=== PATIENT | female | born 1980 | race Caucasian/White ===

== ENCOUNTER 2016-05-13 23:10 | Emergency (ER) | payer OTHER ==
[2016-05-13 23:19] VITALS: BMI 37.8
--- NOTE | 2016-05-14 00:43 | ED PDOC ---
Arrival/HPI - General Historian: Patient - History of Present Illness Time/Duration: Other (3-4 hours) Symptom Course: Improving Severity Level: Mild Activities at Onset: Rest, Light Context: Home - General Chief Complaint: Allergic Reaction Time Seen by Provider: 05/14/16 00:16 - History of Present Illness Narrative History of Present Illness (Text): 05/14/16 00:35 36 year old female who presents to the Emergency department complaining of 3-4 hour durations of lower lip swelling. Patient also with intermittent throat itchiness and nasal congestion. Patient is unsure what triggered the reaction and notes she cooked herself. Patient states she only added hot sauce and adobo seasoning, which she has eating before without any adverse reactions. Patient denies any new medications, shortness of breath, throat swelling, rash, fever, chills, abdominal vomiting, diarrhea, or any other complaints. Patient states she took Loratidine 2 hours prior to arrival and notes swelling is improving. (Alexsander VELOZ,Ashley Varela) Past Medical History - Provider Review Nursing Documentation Reviewed: Yes - Past History Past History: Non-Contributing - Infectious Disease Hx of Infectious Diseases: None - Tetanus Immunization Tetanus Immunization: Unknown - Cardiac Hx Cardiac Disorders: No Hx Hypertension: No - Pulmonary Hx Respiratory Disorders: No Hx Tuberculosis: No - Neurological Hx Neurological Disorder: No HX Cerebrovascular Accident: No Hx Seizures: No - HEENT Hx HEENT Disorder: No - Renal Hx Renal Disorder: No - Endocrine/Metabolic Hx Endocrine Disorders: No - Hematological/Oncological Hx Blood Disorders: No Hx Cancer: No - Integumentary Hx Dermatological Disorder: No - Musculoskeletal/Rheumatological Hx Musculoskeletal Disorders: Yes Hx Herniated Disk: Yes (c5-6) - Gastrointestinal Hx Gastrointestinal Disorders: No - Genitourinary/Gynecological Hx Genitourinary Disorders: No Hx Sexually Transmitted Diseases: No - Psychiatric Hx Psychophysiologic Disorder: Yes Hx Anxiety: Yes Hx Bipolar Disorder: Yes Hx Depression: Yes Hx Schizophrenia: Yes Hx Substance Use: No Other/Comment: SCHIZO AFFECTIVE DISORDER - Surgical History Hx Eye Surgery: Yes Hx Orthopedic Surgery: Yes (back/herniated disc c5-6) - Anesthesia Hx Anesthesia: Yes - Suicidal Assessment Feels Threatened In Home Enviroment: No Family/Social History - Physician Review Nursing Documentation Reviewed: Yes Family/Social History: No Known Family HX Smoking Status: Never Smoked Hx Alcohol Use: No Hx Substance Use: No Hx Substance Use Treatment: No Allergies/Home Meds Allergies/Adverse Reactions: Allergies No Known Allergies Allergy (Verified 05/13/16 23:25) Review of Systems - Physician Review All systems were reviewed & negative as marked: Yes - Review of Systems Constitutional: Normal. absent: Fevers Eyes: Normal ENT: Other ( +throat itchiness, +nasal congestion) Respiratory: Normal. absent: SOB, Cough Cardiovascular: Normal. absent: Chest Pain Gastrointestinal: Normal. absent: Abdominal Pain, Diarrhea, Nausea, Vomiting Genitourinary Female: Normal. absent: Dysuria, Frequency, Hematuria, Urine Output Changes Musculoskeletal: Normal. absent: Back Pain, Neck Pain Skin: Other (+swelling to lower lip). absent: Rash Neurological: Normal. absent: Headache, Dizziness Endocrine: Normal Hemo/Lymphatic: Normal Psychiatric: Normal Physical Exam Vital Signs Reviewed: Yes Temperature: Afebrile Blood Pressure: Normal Pulse: Regular Respiratory Rate: Normal Appearance: Positive for: Well-Appearing, Non-Toxic, Comfortable Pain Distress: None Mental Status: Positive for: Alert and Oriented X 3 - Systems Exam Head: Present: Atraumatic, Normocephalic Pupils: Present: PERRL Extroacular Muscles: Present: EOMI Conjunctiva: Present: Normal Ears: Present: Normal, NORMAL TM, Normal Canal. No: Erythema, TM Bulging, Fluid Mouth: Present: Moist Mucous Membranes, Normal Tounge, Normal Teeth. No: Normal Lips (Mild swelling to lower lip) Pharnyx: Present: Normal. No: ERYTHEMA, EXUDATE, TONSILS ENLARGED, Peritonsilar Swelling, Uvular Deviation, Muffled/Hoarse Voice, Strider, Soft Palate/Uvular Edema Neck: Present: Normal Range of Motion Respiratory/Chest: Present: Clear to Auscultation, Good Air Exchange. No: Respiratory Distress, Accessory Muscle Use Cardiovascular: Present: Regular Rate and Rhythm, Normal S1, S2. No: Murmurs Neurological: Present: GCS=15, CN II-XII Intact, Speech Normal Skin: Present: Warm, Dry, Normal Color. No: Rashes Psychiatric: Present: Alert, Oriented x 3, Normal Insight, Normal Concentration Vital Signs Temp Pulse Resp BP Pulse Ox 05/14/16 01:39 98.8 F 88 16 142/84 98 05/13/16 23:26 99.6 F 99 H 17 174/70 H 95 Medical Decision Making ED Course and Treatment: 05/14/16 00:35 Impression: 36 year old female complaining of lower lip swelling with intermittent throat itchiness and nasal congestion. Plan: -- Solu-medrol -- Reassess and disposition 05/14/16 01:03 On reevaluation, patient appears well, she is in no respiratory distress, speaking in full sentences, no drooling. Exam is unchanged. VS: P 88 BP 142/84 98%RA T98 Based on history and exam, plan will be for outpatient follow-up. Rx provided. Patient states she fully agrees with and understands discharge instructions. States that she agrees with the plan and disposition. Verbalized and repeated discharge instructions and plan. I have given the patient opportunity to ask any additional questions. Follow up with primary care physician in 1-2 days without fail. Advised to take medication as prescribed and to continue loratidine. Return to the emergency room at any time for any new or worsening symptoms. (Alexsander VELOZ,Ashley Varela) - Medication Orders Current Medication Orders: Discontinued Medications Methylprednisolone (Solu-Medrol) 125 mg IM STAT STA Stop: 05/14/16 00:37 Last Admin: 05/14/16 01:19 Dose: 125 MG IM Administration Charges Document 05/14/16 01:19 FJA (Rec: 05/14/16 01:19 FJA [id number]) Injection Site MAR Injection Site Right Deltoid Charges for Administration # of IM Administrations 1 - PA / STAFFING BRANCH MANAGER / Resident Statement MD/DO has reviewed & agrees with the documentation as recorded. - Scribe Statement The provider has reviewed the documentation as recorded by the Scribe - Scribe Statement Paty Slater All medical record entries made by the Scribe were at my direction and personally dictated by me. I have reviewed the chart and agree that the record accurately reflects my personal performance of the history, physical exam, medical decision making, and the department course for this patient. I have also personally directed, reviewed, and agree with the discharge instructions and disposition. (Alexsander VELOZ,Ashley Varela) Disposition/Present on Arrival - Present on Arrival Any Indicators Present on Arrival: No History of DVT/PE: No History of Uncontrolled Diabetes: No Urinary Catheter: No History of Decub. Ulcer: No History Surgical Site Infection Following: None - Disposition Have Diagnosis and Disposition been Completed?: Yes Disposition Time: 01:05 Patient Plan: Discharge - Disposition Diagnosis: Lip swelling, Allergic reaction Disposition: HOME/ ROUTINE Condition: GOOD Discharge Instructions (ExitCare): General Allergic Reaction (ED) Print Language: GIBR[place] Additional Instructions: Thank you for letting us take care of you today. You were treated for lip swelling, allergic reaction. The emergency medical care you received today was directed at your acute symptoms. If you were prescribed any medication, please fill it and take as directed, continue taking loratidine. It may take several days for your symptoms to resolve. Return to the Emergency Department if your symptoms worsen, do not improve, or if you have any other problems. Please contact your doctor in 2 days for re-evaluation and follow up. Bring any paperwork you were given at discharge with you along with any medications you are taking to your follow up visit. Our treatment cannot replace ongoing medical care by a primary care provider (PCP) outside of the emergency department. Thank you for allowing the [facility] team to be part of your care today. Prescriptions: predniSONE [predniSONE Tab] 40 mg PO DAILY #8 tab
[2016-05-14 01:42] VITALS: BP 142/84; PULSE 88; RESP 16; TEMP 98.8; O2SAT 98
== END 2016-05-14 01:42 | disposition home or self-care (01) ==
LOC: ED 23:10
DX: T78.40XA Allergy, unspecified, initial encounter (principal); X58.XXXA Exposure to other specified factors, initial encounter; K13.0 Diseases of lips
CPT/HCPCS: 96372; 99282; J2930

== ENCOUNTER 2016-07-31 01:50 | Emergency (ER) | payer MEDICAID, OTHER ==
[2016-07-31 01:52] VITALS: BMI 37.8
== END 2016-07-31 02:36 | disposition left against medical advice (07) ==
LOC: ED 01:50
DX: Z02.89 Encounter for other administrative examinations (principal); R25.2 Cramp and spasm

== ENCOUNTER 2016-08-02 12:46 | Emergency (ER) | payer MEDICAID ==
[2016-08-02 12:46] VITALS: BMI 37.8
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
[2016-08-02 13:25] LABS: ADD MANUAL DIFF? NO
[2016-08-02 13:37] LABS: ALB/GLOB RATIO 1.2 (1.1-1.8); ALKALINE PHOSPHATASE 75 U/L (38-133); ALT/SGPT 36 U/L (7-56); AST/SGOT 29 U/L (15-39); BILIRUBIN,TOTAL 0.4 mg/dL (0.2-1.3); BLOOD UREA NITROGEN 9 mg/dL (7-21); CALCIUM 9.2 mg/dL (8.4-10.5); CARBON DIOXIDE 24 mmol/L (21-33); CHLORIDE 105 mmol/L (95-110); GFR AFRICAN-AMERICAN > 60; GLUCOSE,RANDOM 131 mg/dL (70-110); POTASSIUM 3.6 mmol/L (3.6-5.0); SODIUM 141 mmol/L (132-148); TOTAL PROTEIN 7.6 g/dL (5.8-8.3)
[2016-08-02 13:51] LABS: BASO # 0.03 K/mm3 (0.0-2.0); BASO % 0.3 % (0.0-3.0); EOS # 0.1 (0.0-0.7); EOS % 0.9 % (1.5-5.0); GRAN # 5.86 (1.4-6.5); GRAN % 64.3 % (50.0-68.0); LYMPH # 2.6 (1.2-3.4); LYMPH % 28.2 % (22.0-35.0); MEAN CELL VOLUME 84.9 fL (80.0-105.0); MEAN CORPUSCULAR HEMOGLOBIN 28.4 pg (25.0-35.0); MEAN CORPUSCULAR HGB CONC 33.4 g/dl (31.0-37.0); MEAN PLATELET VOLUME 9.2 fl (7.0-11.0); MONO # 0.6 (0.1-0.6); MONO % 6.3 % (1.0-6.0); PLATELET COUNT 374 10^3/uL (120.0-450.0); WHITE BLOOD COUNT 9.1 10^3/ul (4.5-11.0)
[2016-08-02 15:08] VITALS: BP 132/90; PULSE 97; RESP 22; TEMP 98.2; O2SAT 96
--- NOTE | 2016-08-03 09:56 | CARD ---
APPROVED REPORT EKG Measurement Heart [id number] <Conclusion> Sinus tachycardia Low voltage QRS PRWP NSSTW change No change
== END 2016-08-02 15:21 | disposition home or self-care (01) ==
LOC: ED 12:46
DX: F25.9 Schizoaffective disorder, unspecified (principal)

== ENCOUNTER 2016-09-09 13:04 | Emergency (ER) | payer MEDICAID ==
[2016-09-09 13:45] VITALS: BMI 38.4
[2016-09-09 13:47] VITALS: RESP 18; TEMP 98.7; O2SAT 100
[2016-09-09 14:06] LABS: URINE BILIRUBIN NEGATIVE (NEGATIVE); URINE BLOOD NEGATIVE (NEGATIVE); URINE GLUCOSE (UA) NEGATIVE (NEGATIVE); URINE LEUKOCYTE ESTERASE NEGATIVE Leu/uL (NEGATIVE); URINE NITRATE NEGATIVE (NEGATIVE); URINE PROTEIN 30 mg/dL (<30 mg/dL)
[2016-09-09 14:07] VITALS: BP 135/68; PULSE 89
[2016-09-09 14:07] LABS: URINE APPEARANCE SL CLOUDY (CLEAR); URINE COLOR YELLOW (YELLOW)
[2016-09-09 14:20] LABS: URINE BACTERIA MANY (NEG); URINE EPITHELIAL CELLS MANY /hpf (0-5); URINE RBC NEGATIVE /hpf (0-2); URINE WBC 0 - 2 /hpf (0-6)
--- NOTE | 2016-09-09 14:54 | ED PDOC ---
Arrival/HPI - General Chief Complaint: Female Genitourinary Time Seen by Provider: 09/09/16 13:50 Historian: Patient - History of Present Illness Narrative History of Present Illness (Text): 09/09/16 15:05 36 yo female come in for evaluation of vaginal irritation, itchiness, vaginal discharges for past few months. Pt sts, noted some suprapubic discomfort with urination for past few days. Otherwise, pt denies fever, chills, sore throat, abd. pain, N/V/D, back pain, UTI sx, hematuria. Pt is very poor historian. Past Medical History - Provider Review Nursing Documentation Reviewed: Yes - Travel History Have you recently traveled outside [place] w/in the past 3 mons?: No - Past History Past History: Non-Contributing - Infectious Disease Hx of Infectious Diseases: None - Tetanus Immunization Tetanus Immunization: Unknown - Cardiac Hx Pacemaker: No - Pulmonary Hx Respiratory Disorders: No Hx Tuberculosis: No - Neurological Hx Paralysis: No - HEENT Hx HEENT Disorder: No - Renal Hx Renal Disorder: No - Endocrine/Metabolic Hx Endocrine Disorders: No - Hematological/Oncological Hx Blood Transfusions: No Hx Blood Transfusion Reaction: No - Integumentary Hx Dermatological Disorder: No - Musculoskeletal/Rheumatological Hx Musculoskeletal Disorders: Yes Hx Back Pain: Yes - Gastrointestinal Hx Gastrointestinal Disorders: No - Genitourinary/Gynecological Hx Genitourinary Disorders: No Hx Sexually Transmitted Diseases: No - Psychiatric Hx Psychophysiologic Disorder: Yes Hx Anxiety: Yes Hx Bipolar Disorder: Yes Hx Depression: Yes Hx Schizophrenia: Yes Hx Substance Use: No Other/Comment: SCHIZO AFFECTIVE DISORDER - Surgical History Other/Comment: unknown surgery - Anesthesia Hx Anesthesia: Yes Hx Anesthesia Reactions: No Hx Malignant Hyperthermia: No - Suicidal Assessment Feels Threatened In Home Enviroment: No Family/Social History - Physician Review Nursing Documentation Reviewed: Yes Family/Social History: No Known Family HX Smoking Status: Never Smoked Hx Alcohol Use: No Hx Substance Use: No Hx Substance Use Treatment: No Allergies/Home Meds Allergies/Adverse Reactions: Allergies No Known Allergies Allergy (Verified 09/09/16 13:42) Review of Systems - Review of Systems Constitutional: Normal Eyes: Normal ENT: Normal Respiratory: Normal Cardiovascular: Normal Gastrointestinal: Normal Genitourinary Female: Vaginal Discharge. absent: Dysuria, Frequency Musculoskeletal: Normal Skin: Normal Neurological: Normal Endocrine: Normal Hemo/Lymphatic: Normal Psychiatric: Normal Physical Exam Vital Signs Temp Pulse Resp BP Pulse Ox 09/09/16 14:07 89 18 135/68 100 09/09/16 13:45 98.7 F 99 H 18 137/65 100 Temperature: Afebrile Blood Pressure: Normal Pulse: Regular Respiratory Rate: Normal Appearance: Positive for: Well-Appearing, Non-Toxic, Comfortable Pain Distress: None Mental Status: Positive for: Alert and Oriented X 3 - Systems Exam Conjunctiva: Present: Normal Mouth: Present: Moist Mucous Membranes Pharnyx: No: ERYTHEMA Neck: Present: Trachea Midline Abdomen: Present: Normal Bowel Sounds. No: Tenderness, Distention, Peritoneal Signs, Guarding, McBurney's Point Tender Genitourinary/Pelvic Exam: Present: Vaginal Discharge (thick yellow discharges with strong odor.), Odor, Other (diffuse erythematous rash perinial area, no edema, no cellulitis). No: Vaginal Lesions Back: Present: Normal Inspection. No: CVA Tenderness Lower Extremity: No: Deformity Neurological: Present: GCS=15, Speech Normal Skin: Present: Warm, Dry, Normal Color. No: Rashes Psychiatric: Present: Alert, Oriented x 3 Medical Decision Making - Lab Interpretations Lab Results: Lab Results 09/09/16 14:00: Urine Color Yellow, Urine Appearance Sl cloudy, Urine pH 6.0, Ur Specific [place] >= 1.030, Urine Protein 30 H, Urine Glucose (UA) Negative, Urine Ketones Trace H, Urine Blood Negative, Urine Nitrate Negative, Urine Bilirubin Negative, Urine Urobilinogen 1.0 H, Ur Leukocyte Esterase Negative, Urine RBC Negative, Urine WBC 0 - 2, Ur Epithelial Cells Many, Urine Bacteria Many Disposition/Present on Arrival - Present on Arrival Any Indicators Present on Arrival: No History of DVT/PE: No History of Uncontrolled Diabetes: No Urinary Catheter: No History of Decub. Ulcer: No History Surgical Site Infection Following: None - Disposition Have Diagnosis and Disposition been Completed?: Yes Diagnosis: Vaginosis Disposition: HOME/ ROUTINE Disposition Time: 14:54 Patient Plan: Discharge Condition: STABLE Discharge Instructions (ExitCare): Bacterial Vaginosis (ED), Jock Itch (ED) Additional Instructions: Take medication as prescribed Follow up with SENIOR PROJECT ENGINEER in 2-3 days for re-evaluation. Return to ED if any worsening or new changes. Prescriptions: Clotrimazole 1% Cream [Lotrimin 1%] 1 gm TP BID #7 tube Metronidazole [Metrogel-Vaginal] 1 ea VG HS #7 gel Referrals: PCP,NO [Primary Care Provider] - [facility] - Follow up with primary
== END 2016-09-09 15:20 | disposition home or self-care (01) ==
LOC: ED 13:04
DX: N76.0 Acute vaginitis (principal)

== ENCOUNTER 2016-09-18 11:08 | Emergency (ER) | payer MEDICAID ==
[2016-09-18 11:22] VITALS: TEMP 98.5; O2SAT 99; BMI 37.5
--- NOTE | 2016-09-18 11:33 | ED PDOC ---
Arrival/HPI <Julita Cope - Last Filed: 09/18/16 12:02> - General Historian: Patient - Critical Care Critical Care Minutes: 30 minutes - History of Present Illness Time/Duration: 1/2 hour Symptom Onset: Sudden Symptom Course: Unchanged Quality: Stabbing <Esteban Doherty - Last Filed: 09/18/16 16:05> - General Chief Complaint: Lower Extremity Problem/Injury Time Seen by Provider: 09/18/16 11:14 - History of Present Illness Narrative History of Present Illness (Text): 09/18/16 11:33 36 year old female with past medical history of schizoaffective disorder presents to ED today with right ankle pain. Patient states she tripped over an uneven pavement on the street. Patient fell forward and landed on her elbows. Patient describes the pain as sharp in quality, non radiating, and about 7/10 in intensity. The pain is worse with weight bearing and walking. She denies injuring her head and having any loss of consciousness. Patient further denies having headache, dizziness, fever, chills, shortness of breath, chest pain, abdominal pain, nausea, vomiting, lower extremity swelling, or history of recent travels. (Esteban Doherty) Past Medical History - Provider Review Nursing Documentation Reviewed: Yes - Past History Past History: Non-Contributing - Infectious Disease Hx of Infectious Diseases: None - Tetanus Immunization Tetanus Immunization: Unknown - Cardiac Hx Pacemaker: No - Pulmonary Hx Respiratory Disorders: No Hx Tuberculosis: No - Neurological Hx Paralysis: No - HEENT Hx HEENT Disorder: No - Renal Hx Renal Disorder: No - Endocrine/Metabolic Hx Endocrine Disorders: No - Hematological/Oncological Hx Blood Transfusions: No Hx Blood Transfusion Reaction: No - Integumentary Hx Dermatological Disorder: No - Musculoskeletal/Rheumatological Hx Musculoskeletal Disorders: Yes Hx Back Pain: Yes - Gastrointestinal Hx Gastrointestinal Disorders: No - Genitourinary/Gynecological Hx Genitourinary Disorders: No Hx Sexually Transmitted Diseases: No - Psychiatric Hx Psychophysiologic Disorder: Yes Hx Anxiety: Yes Hx Bipolar Disorder: Yes Hx Depression: Yes Hx Schizophrenia: Yes Hx Substance Use: No Other/Comment: SCHIZO AFFECTIVE DISORDER - Surgical History Other/Comment: unknown surgery - Anesthesia Hx Anesthesia: Yes Hx Anesthesia Reactions: No Hx Malignant Hyperthermia: No - Suicidal Assessment Feels Threatened In Home Enviroment: No <Esteban Doherty - Last Filed: 09/18/16 16:05> Family/Social History Family/Social History: No Known Family HX Smoking Status: Never Smoked Hx Alcohol Use: No Hx Substance Use: No Hx Substance Use Treatment: No <Esteban Doherty - Last Filed: 09/18/16 16:05> Allergies/Home Meds <Julita Cope - Last Filed: 09/18/16 12:02> <Esteban Doherty - Last Filed: 09/18/16 16:05> Allergies/Adverse Reactions: Allergies No Known Allergies Allergy (Verified 09/09/16 13:42) Review of Systems - Physician Review All systems were reviewed & negative as marked: Yes - Review of Systems Constitutional: Normal. absent: Fatigue, Fevers Eyes: Normal. absent: Vision Changes ENT: Normal Respiratory: Normal. absent: SOB, Cough, Wheezing Cardiovascular: Normal Gastrointestinal: Normal. absent: Abdominal Pain, Diarrhea, Nausea, Vomiting Genitourinary Female: Normal Musculoskeletal: Arthralgias (right ankle pain). absent: Normal, Joint Swelling Skin: Normal Neurological: Normal. absent: Headache, Dizziness Endocrine: Normal. absent: Diaphoresis Hemo/Lymphatic: Normal Psychiatric: Normal <Esteban Doherty - Last Filed: 09/18/16 16:05> Physical Exam Vital Signs Reviewed: Yes Temperature: Afebrile Blood Pressure: Hypertensive Respiratory Rate: Normal Appearance: Positive for: Well-Appearing, Non-Toxic, Comfortable Pain Distress: Mild Mental Status: Positive for: Alert and Oriented X 3 - Systems Exam Head: Present: Atraumatic, Normocephalic Pupils: Present: PERRL Extroacular Muscles: Present: EOMI Conjunctiva: Present: Normal Mouth: Present: Moist Mucous Membranes Nose (External): Present: Atraumatic Neck: Present: Normal Range of Motion Respiratory/Chest: Present: Clear to Auscultation, Good Air Exchange. No: Respiratory Distress, Accessory Muscle Use Cardiovascular: Present: Regular Rate and Rhythm, Normal S1, S2. No: Murmurs Abdomen: Present: Normal Bowel Sounds. No: Tenderness, Distention, Peritoneal Signs Back: Present: Normal Inspection Upper Extremity: Present: Normal Inspection, Normal ROM, NORMAL PULSES, Neurovascularly Intact. No: Cyanosis, Edema, Deformity Lower Extremity: Present: NORMAL PULSES, Normal ROM (full range of motion with pain), Tenderness, Neurovascularly Intact, Other (5th metatarsal tenderness). No: Edema, CALF TENDERNESS, Swelling, Erythema, Deformity, Temperature Abnormalties Neurological: Present: GCS=15, CN II-XII Intact, Speech Normal Skin: Present: Warm, Dry, Normal Color. No: Rashes Psychiatric: Present: Alert, Oriented x 3, Normal Insight, Normal Concentration <Esteban Doherty - Last Filed: 09/18/16 16:05> Vital Signs Temp Pulse Resp BP Pulse Ox 09/18/16 13:10 78 17 138/85 99 09/18/16 12:11 84 18 141/89 99 09/18/16 11:18 98.5 F 90 18 147/97 H 99 Medical Decision Making <Julita Cope - Last Filed: 09/18/16 12:02> <Esteban Doherty - Last Filed: 09/18/16 16:05> ED Course and Treatment: In agreement with resident note which contains more details about the patient. Patient was seen and evaluated with resident. Came up with plan and treatment together. Patient presents to the emergency department for evaluation of right ankle pain after she twisted her ankle prior to arrival. On exam, there is no ligamentous laxity, no pain to malleoli. There is focal pain to 5th metatarsal, but no edema or deformity noted. X-rays are unremarkable and patient is able to ambulate and bear weight without any difficulty. Will discharge patient on Ibuprofen and advised to f/u with orthopedist. (Julita Cope) 09/18/16 11:48 -Foot x-ray -Motrin -Reassess and disposition DDx: ankle sprain, metatarsal fracture Prior visit: 09/09/16 for bacterial vaginosis 09/18/16 12:00 Patient's symptoms improved with Motrin. Patient will be discharged on Motrin and ortho follow up. (Esteban Doherty) - RAD Interpretation Narrative RAD Interpretations (Text): 09/18/16 11:56 Ankle x-ray showed no evidence of acute metatarsal fractures. Read by me. (Esteban Doherty) Radiology Orders: 09/18/16 11:30 FOOT RIGHT 3 VIEWS ROUTINE [RAD] Stat - Medication Orders Current Medication Orders: Discontinued Medications Ibuprofen (Motrin Tab) 600 mg PO STAT STA Stop: 09/18/16 11:32 Last Admin: 09/18/16 12:17 Dose: 600 mg - Scribe Statement The provider has reviewed the documentation as recorded by the Scribe <Julita Cope - Last Filed: 09/18/16 12:02> - PA / HOT PRESS OPERATOR / Resident Statement MD/ has reviewed & agrees with the documentation as recorded. MD/ has examined the patient and agrees with the treatment plan. <Esteban Doherty - Last Filed: 09/18/16 16:05> - Scribe Statement Alfreda Granados Provider Scribe Attestation: All medical record entries made by the Scribe were at my direction and personally dictated by me. I have reviewed the chart and agree that the record accurately reflects my personal performance of the history, physical exam, medical decision making, and the department course for this patient. I have also personally directed, reviewed, and agree with the discharge instructions and disposition. (PriscaJulita) Disposition/Present on Arrival <Julita Cope - Last Filed: 09/18/16 12:02> - Present on Arrival Any Indicators Present on Arrival: No History of DVT/PE: No History of Uncontrolled Diabetes: No Urinary Catheter: No History Surgical Site Infection Following: None - Disposition Have Diagnosis and Disposition been Completed?: Yes Disposition Time: 12:05 Patient Plan: Discharge <Esteban Doherty - Last Filed: 09/18/16 16:05> - Disposition Diagnosis: Ankle sprain, Foot sprain Disposition: HOME/ ROUTINE Condition: IMPROVED Discharge Instructions (ExitCare): Ankle Sprain (ED), Foot Sprain (ED) Additional Instructions: Beatriz Hood, thank you for letting us take care of you today. Your provider was Dr. Cope. You were treated for ankle sprain. The emergency medical care you received today was directed at your acute symptoms. If you were prescribed any medication, please fill it and take as directed. It may take several days for your symptoms to resolve. Return to the Emergency Department if your symptoms worsen, do not improve, or if you have any other problems. Please contact your doctor or call one of the physicians/clinics you have been referred to that are listed on the Patient Visit Information form that is included in your discharge packet. Bring any paperwork you were given at discharge with you along with any medications you are taking to your follow up visit. Our treatment cannot replace ongoing medical care by a primary care provider (PCP) outside of the emergency department. Thank you for allowing the [email or web address] team to be part of your care today. Please take Motrin as prescribed with food. Resting, ice, ALTAF wrap and elevated right ankle. Make an appointment to follow up with your Orthopedist as instructed. Prescriptions: Ibuprofen [Motrin Tab] 400 mg PO Q8 PRN #12 tab PRN Reason: Pain, Mild (1-3) Referrals: [facility] [Outside] - Follow up with primary Forms: [employer] ([place] Citizen)
--- NOTE | 2016-09-18 12:11 | RAD ---
PROCEDURE: Right Foot Radiographs. HISTORY: foot trauma COMPARISON: None. FINDINGS: BONES: Normal. No fracture. JOINTS: Normal. SOFT TISSUES: Normal. OTHER FINDINGS: None. IMPRESSION: Normal right foot radiographs.
[2016-09-18 13:11] VITALS: BP 138/85; PULSE 78; RESP 17
== END 2016-09-18 13:11 | disposition home or self-care (01) ==
LOC: ED 11:08
DX: S93.401A Sprain of unspecified ligament of right ankle, initial encounter (principal); W01.0XXA Fall on same level from slipping, tripping and stumbling without subsequent striking against object, initial encounter; Y93.9 Activity, unspecified; Y92.488 Other paved roadways as the place of occurrence of the external cause

== ENCOUNTER 2016-10-09 15:08 | Emergency (ER) | payer MEDICAID ==
[2016-10-09 15:19] VITALS: BMI 37.5
--- NOTE | 2016-10-09 15:27 | ED PDOC ---
Arrival/HPI - General Chief Complaint: Pain, Chronic Time Seen by Provider: 10/09/16 15:22 Historian: Patient - History of Present Illness Narrative History of Present Illness (Text): 10/09/16 15:22 Beatriz Hood is a 36 year old female, whose past medical history includes cervical spine surgery (around 2012), who presents to the emergency department complaining of continued neck pain from spine surgery. Patient describes her pain as a burning sensation and states that it radiates to her right upper extremity at times. Patient states that her pain is not midline. Patient denies any other complaints at this time. PMD: Dr. William Symptom Onset: Gradual Symptom Course: Unchanged Quality: Burning Activities at Onset: Rest Context: Home Past Medical History - Provider Review Nursing Documentation Reviewed: Yes - Past History Past History: Non-Contributing - Infectious Disease Hx of Infectious Diseases: None - Tetanus Immunization Tetanus Immunization: Unknown - Cardiac Hx Pacemaker: No - Pulmonary Hx Respiratory Disorders: No Hx Tuberculosis: No - Neurological Hx Paralysis: No - HEENT Hx HEENT Disorder: No - Renal Hx Renal Disorder: No - Endocrine/Metabolic Hx Endocrine Disorders: No - Hematological/Oncological Hx Blood Transfusions: No Hx Blood Transfusion Reaction: No - Integumentary Hx Dermatological Disorder: No - Musculoskeletal/Rheumatological Hx Musculoskeletal Disorders: Yes Hx Back Pain: Yes - Gastrointestinal Hx Gastrointestinal Disorders: No - Genitourinary/Gynecological Hx Genitourinary Disorders: No Hx Sexually Transmitted Diseases: No - Psychiatric Hx Psychophysiologic Disorder: Yes Hx Anxiety: Yes Hx Bipolar Disorder: Yes Hx Depression: Yes Hx Schizophrenia: Yes Hx Substance Use: No Other/Comment: SCHIZO AFFECTIVE DISORDER - Surgical History Other/Comment: neck surgery 2012 - Anesthesia Hx Anesthesia: Yes Hx Anesthesia Reactions: No Hx Malignant Hyperthermia: No - Suicidal Assessment Feels Threatened In Home Enviroment: No Family/Social History - Physician Review Nursing Documentation Reviewed: Yes Family/Social History: No Known Family HX Smoking Status: Never Smoked Hx Alcohol Use: No Hx Substance Use: No Hx Substance Use Treatment: No Allergies/Home Meds Allergies/Adverse Reactions: Allergies No Known Allergies Allergy (Verified 10/09/16 15:20) Physical Exam - Physical Exam Narrative Physical Exam (Text): - Review of Systems Constitutional: Normal. absent: Fatigue, Weight Change, Fevers Eyes: Normal ENT: Normal Respiratory: Normal absent: SOB, Cough, Sputum Cardiovascular: Normal absent: Chest pain, Palpitations, Syncope Gastrointestinal: Normal absent: Abdominal pain, Diarrhea, Nausea, Vomiting Genitourinary: Normal. absent: Dysuria, Frequency, Hematuria Musculoskeletal: Continued Neck pain that radiates to RUE at times. absent: Arthralgias Skin: Normal Neurological: Normal absent: Focal Weakness Endocrine: Normal Hemo/Lymphatic: Normal Psychiatric: Normal - Physical exam Patient appears age appropriate, speaking full sentences without difficulty. - Systems Exam Head: Present: Atraumatic, Normocephalic Pupils: Present: PERRL Extraocular Muscles: Present: EOMI Conjunctiva: Present: Normal Mouth: Present: Moist Mucous Membranes Neck: Full active and passive ROM of neck. No: MIDLINE TENDERNESS, Paraspinal Tenderness Respiratory/Chest: Present: Clear to Auscultation, Good Air Exchange. No: Respiratory Distress, Accessory Muscle Use, Tachypnic Cardiovascular: Present: Regular Rate and Rhythm, Normal S1, S2, Peripheral Pulses Present. No: Murmurs Abdomen: Present: Normal Bowel Sounds, No: Tenderness, Peritoneal Signs, Rebound, Guarding, Distention Back: Present: Normal Inspection. No: Midline Tenderness, Paraspinal Tenderness Upper Extremity: 5/5 strength. No neurosensory loss. No discoloration bilaterally. Positive bilateral distal pulses. No: Cyanosis, Edema Lower Extremity: Present: Normal Inspection. No: Edema Neurological: Present: GCS=15, Speech Normal, cranial nerves II through XII fully intact with no cerebellar abnormality, neuro-sensory fully intact. No focal neurological deficits. Skin: Present: Warm, Dry, Normal Color. No: Rashes Lymphatic: Present: OX3, NI, NC Psychiatric: Denies Anxiety. Denies any Suicidal ideation or Homicidal ideation. Present: Alert, Oriented x 3, Normal Insight, Normal Concentration 10/09/16 15:37 Vital Signs Reviewed: Yes Vital Signs Temp Pulse Resp BP Pulse Ox 10/09/16 15:51 98.7 F 80 18 126/80 99 10/09/16 15:47 98.6 F 86 18 124/84 98 10/09/16 15:20 98.3 F 88 16 122/82 97 Temperature: Afebrile Blood Pressure: Normal Pulse: Regular Respiratory Rate: Normal Appearance: Positive for: Well-Appearing, Non-Toxic, Comfortable Pain Distress: None Mental Status: Positive for: Alert and Oriented X 3 Medical Decision Making ED Course and Treatment: 10/09/16 15:22 Impression: 36 year old female with a history of cervical spine surgery complaining of continued pain that intermittently radiates to RUE. On physical exam, neck exam shows full active and passive ROM with no midline tenderness. Upper extremity exam shows 5/5 strength bilaterally, no neurosensory loss, no discoloration bilaterally, and positive distal pulses bilaterally. Differential Diagnosis included but are not limited to: Neck pain, Cervical Radiculopathy Plan: -- Discharge Prior Visits: Notes and results from previous visits were reviewed. Patient last seen in the ED on 09/18/16 for right ankle pain that day. Patient was discharged home. Progress Notes: 10/09/16 15:22 Patient states that her new PMD is Dr. William with whom she will follow-up outpatient. Pt states she understands to return to the ER right away for new or worsening symptoms or for inability to f/u with PMD or specialist as instructed. Patient states that she fully agrees with and understands discharge instructions. States that she agrees with the plan and disposition. Verbalized and repeated discharge instructions and plan. I have given the patient opportunity to ask any additional questions. - Scribe Statement The provider has reviewed the documentation as recorded by the Jose Valentine Provider Scribe Attestation: All medical record entries made by the Jose were at my direction and personally dictated by me. I have reviewed the chart and agree that the record accurately reflects my personal performance of the history, physical exam, medical decision making, and the department course for this patient. I have also personally directed, reviewed, and agree with the discharge instructions and disposition. Disposition/Present on Arrival - Present on Arrival Any Indicators Present on Arrival: No History of DVT/PE: No History of Uncontrolled Diabetes: No Urinary Catheter: No History of Decub. Ulcer: No History Surgical Site Infection Following: None - Disposition Have Diagnosis and Disposition been Completed?: Yes Diagnosis: Neck pain Disposition: HOME/ ROUTINE Disposition Time: 15:23 Patient Plan: Discharge Condition: GOOD Discharge Instructions (ExitCare): Cervical Radiculopathy (ED) Additional Instructions: PLEASE RETURN TO THE EMERGENCY DEPARTMENT FOR NEW OR WORSENING SYMPTOMS. RETURN RIGHT AWAY IF YOU CANNOT FOLLOW UP WITH YOUR PRIMARY CARE DOCTOR, CLINIC, OR SPECIALIST IN 1-2 DAYS. Prescriptions: Cyclobenzaprine [Flexeril] 5 mg PO BID #10 tab Ibuprofen [Motrin] 600 mg PO Q8 PRN #12 tab PRN Reason: Pain, Moderate (4-7) Referrals: Funmilayo William MD [Staff Provider] - Follow up with primary Forms: [employer] ([place])
[2016-10-09 15:48] VITALS: RESP 18
[2016-10-09 15:52] VITALS: BP 126/80; PULSE 80; TEMP 98.7; O2SAT 99
== END 2016-10-09 15:52 | disposition home or self-care (01) ==
LOC: ED 15:08
DX: M54.2 Cervicalgia (principal)

== ENCOUNTER 2016-11-04 06:48 | Emergency (ER) | payer MEDICAID, OTHER ==
[2016-11-04 06:58] VITALS: BMI 36.6
[2016-11-04 07:05] VITALS: TEMP 98.1
--- NOTE | 2016-11-04 07:31 | ED PDOC ---
Arrival/HPI - General Chief Complaint: Eye Problem Time Seen by Provider: 11/04/16 07:12 Historian: Patient - History of Present Illness Narrative History of Present Illness (Text): 11/04/16 07:17 A 36 year old female, whose past medical history includes cervical spine surgery (around 2012), presents to the emergency department complaining of left intermittent eye itchiness for 3-4 days. Patient reports she usually experiences irritation in her home, but not so much outside. She notes always experiencing sore throat. Patient denies of any foreign body, cough or any other complaints. Also, patient mentions she has not taken any medications to relieve symptoms. PMD: Dr. Galicia Time/Duration: < week (3-4 days) Symptom Onset: Sudden Symptom Course: Unchanged Activities at Onset: Rest, Light Context: Home Past Medical History - Provider Review Nursing Documentation Reviewed: Yes - Past History Past History: Non-Contributing - Infectious Disease Hx of Infectious Diseases: None - Tetanus Immunization Tetanus Immunization: Unknown - Cardiac Hx Pacemaker: No - Pulmonary Hx Respiratory Disorders: No - Neurological Hx Paralysis: No - HEENT Hx HEENT Disorder: No - Renal Hx Renal Disorder: No - Endocrine/Metabolic Hx Endocrine Disorders: No - Hematological/Oncological Hx Blood Transfusions: No Hx Blood Transfusion Reaction: No - Integumentary Hx Dermatological Disorder: No - Musculoskeletal/Rheumatological Hx Musculoskeletal Disorders: Yes Hx Back Pain: Yes - Gastrointestinal Hx Gastrointestinal Disorders: No - Genitourinary/Gynecological Hx Genitourinary Disorders: No - Psychiatric Hx Psychophysiologic Disorder: Yes Hx Anxiety: Yes Hx Bipolar Disorder: Yes Hx Depression: Yes Hx Schizophrenia: Yes Hx Substance Use: No Other/Comment: SCHIZO AFFECTIVE DISORDER - Surgical History Other/Comment: neck surgery 2013 - Anesthesia Hx Anesthesia: Yes Hx Anesthesia Reactions: No Hx Malignant Hyperthermia: No - Suicidal Assessment Feels Threatened In Home Enviroment: No Family/Social History - Physician Review Nursing Documentation Reviewed: Yes Family/Social History: No Known Family HX Smoking Status: Never Smoked Hx Alcohol Use: No Hx Substance Use: No Hx Substance Use Treatment: No Allergies/Home Meds Allergies/Adverse Reactions: Allergies No Known Allergies Allergy (Verified 10/09/16 15:20) Review of Systems - Physician Review All systems were reviewed & negative as marked: Yes - Review of Systems Eyes: Eye Pain (left eye irrritation), Other (left eye itchiness) ENT: Sore Throat (intermittent, patient states always having it) Respiratory: absent: Cough Physical Exam Vital Signs Reviewed: Yes Vital Signs Temp Pulse Resp BP Pulse Ox 11/04/16 07:55 94 H 18 136/96 H 98 11/04/16 06:49 98.1 F 91 H 16 159/80 H 95 Temperature: Afebrile Blood Pressure: Hypertensive Pulse: Regular Respiratory Rate: Normal Appearance: Positive for: Well-Appearing Pain Distress: None Mental Status: Positive for: Alert and Oriented X 3 - Systems Exam Head: Present: Atraumatic, Normocephalic Pupils: Present: PERRL Extroacular Muscles: Present: EOMI Conjunctiva: Present: Injected (left eye), Other (left eye redness; Fluorescein exam shows no corneal abrasion and no foreign body) Mouth: Present: Moist Mucous Membranes Pharnyx: Present: Normal. No: ERYTHEMA Neck: Present: Normal Range of Motion Respiratory/Chest: Present: Clear to Auscultation, Good Air Exchange. No: Respiratory Distress, Accessory Muscle Use Cardiovascular: Present: Regular Rate and Rhythm, Normal S1, S2. No: Murmurs Abdomen: Present: Normal Bowel Sounds. No: Tenderness, Distention, Peritoneal Signs Back: Present: Normal Inspection Upper Extremity: Present: Normal Inspection. No: Cyanosis, Edema Lower Extremity: Present: Normal Inspection. No: Edema Neurological: Present: GCS=15, CN II-XII Intact, Speech Normal, Motor Func Grossly Intact Skin: Present: Warm, Dry, Normal Color. No: Rashes Psychiatric: Present: Alert, Oriented x 3, Normal Insight, Normal Concentration Medical Decision Making ED Course and Treatment: 11/04/16 07:20 Impression: 36 year old female with left eye itchiness. Physical exam shows left eye conjunctiva injected. Differential Diagnosis included but are not limited to: Conjunctivis Plan: -- Fluorescein with anderson lamp exam done on left eye. No foreign body or abrasion. -- Visual acuity normal. Prior Visits: Notes and results from previous visits were reviewed. Patient was last seen in the emergency department on 10/09/2016 for neck pain from spine surgery. Patient was discharged home. Progress Notes: 11/04/2016 07:21 I have discussed the results and plan with the patient, who expresses understanding. She will make sure to follow up with her PMD. Patient in agreement with plan to be discharged home. Patient is stable for discharge. Patient was instructed to follow up with physician or return if symptoms worsen or new concerning symptoms arise. - Medication Orders Current Medication Orders: Discontinued Medications Fluorescein Sodium (Hpcgj-X-Pzsma A.T.) 1 mg OS ONCE ONE Stop: 11/04/16 07:23 Last Admin: 11/04/16 07:37 Dose: - Scribe Statement The provider has reviewed the documentation as recorded by the Jose Cross Provider Scribe Attestation: All medical record entries made by the Scriblucie were at my direction and personally dictated by me. I have reviewed the chart and agree that the record accurately reflects my personal performance of the history, physical exam, medical decision making, and the department course for this patient. I have also personally directed, reviewed, and agree with the discharge instructions and disposition. Disposition/Present on Arrival - Present on Arrival Any Indicators Present on Arrival: No History of DVT/PE: No History of Uncontrolled Diabetes: No Urinary Catheter: No History of Decub. Ulcer: No History Surgical Site Infection Following: None - Disposition Have Diagnosis and Disposition been Completed?: Yes Diagnosis: Conjunctivitis Disposition: HOME/ ROUTINE Disposition Time: 07:21 Patient Plan: Discharge Condition: IMPROVED Discharge Instructions (ExitCare): Conjunctivitis (ED) Additional Instructions: Ms Hood, thank you for letting us take care of you today. Your provider was Dr. Corral. You were treated for Conjunctivitis. The emergency medical care you received today was directed at your acute symptoms. If you were prescribed any medication, please fill it and take as directed. It may take several days for your symptoms to resolve. Return to the Emergency Department if your symptoms worsen, do not improve, or if you have any other problems. Please contact your doctor or call one of the physicians/clinics you have been referred to that are listed on the Patient Visit Information form that is included in your discharge packet. Bring any paperwork you were given at discharge with you along with any medications you are taking to your follow up visit. Our treatment cannot replace ongoing medical care by a primary care provider (PCP) outside of the emergency department. Thank you for allowing the [facility] team to be part of your care today. If you had an X-Ray or CT scan: A Radiologist will review the ED reading if any change in treatment is needed we will contact you. If you had a blood, urine, or wound culture: It will take several days for the results, if any change in treatment is needed we will contact you. If you had an STI test: It will take 48 hours for the results. Please call after 1 week if you have not heard back. Prescriptions: Cetirizine HCl [Zyrtec] 10 mg PO DAILY PRN #20 tab.rapdis PRN Reason: Allergy Symptoms Erythromycin 0.5% [Ilytocin] 0.5 gm OS Q6H #1 tube Referrals: Tobias Branch MD [Staff Provider] - Follow up with primary Lux Galicia DO [Staff Provider] - Follow up with primary Forms: [employer] ([place]), WORK NOTE
[2016-11-04] MEDS: Fluorescein 1 mg Ophthalmic Strip OS ONE ×2 (07:36→07:37)
[2016-11-04 07:56] VITALS: BP 136/96; PULSE 94; RESP 18; O2SAT 98
== END 2016-11-04 07:56 | disposition home or self-care (01) ==
LOC: ED 06:48
DX: H10.9 Unspecified conjunctivitis (principal)

== ENCOUNTER 2017-01-30 17:49 | Emergency (ER) | payer MEDICAID, OTHER ==
[2017-01-30 17:57] VITALS: BMI 32.5
[2017-01-30 18:25] LABS: BASO # 0.02 K/mm3 (0.0-2.0); BASO % 0.2 % (0.0-3.0); EOS # 0.1 (0.0-0.7); EOS % 0.7 % (1.5-5.0); GRAN # 6.19 (1.4-6.5); GRAN % 62.5 % (50.0-68.0); HEMATOCRIT 41.6 % (36.0-48.0); LYMPH # 3.1 (1.2-3.4); MEAN CELL VOLUME 85.2 fl (80.0-105.0); MEAN CORPUSCULAR HEMOGLOBIN 28.9 pg (25.0-35.0); MEAN CORPUSCULAR HGB CONC 33.9 g/dl (31.0-37.0); MEAN PLATELET VOLUME 9.4 fl (7.0-11.0); MONO # 0.6 (0.1-0.6); MONO % 5.6 % (1.0-6.0); WHITE BLOOD COUNT 9.9 10^3/ul (4.5-11.0)
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
[2017-01-30 18:35] LABS: PARTIAL THROMBOPLASTIN TIME 30.8 Seconds (25.1-36.5)
[2017-01-30 18:43] LABS: ALB/GLOB RATIO 1.1 (1.1-1.8); ALKALINE PHOSPHATASE 65 U/L (38-126); ALT/SGPT 41 U/L (7-56); AST/SGOT 35 U/L (14-36); BILIRUBIN,TOTAL 0.5 mg/dL (0.2-1.3); BLOOD UREA NITROGEN 11 mg/dL (7-21); CALCIUM 9.2 mg/dL (8.4-10.5); CARBON DIOXIDE 23 mmol/L (21-33); CHLORIDE 105 mmol/L (98-107); GFR AFRICAN-AMERICAN > 60; GLUCOSE,RANDOM 138 mg/dL (70-110); POTASSIUM 3.5 mmol/L (3.6-5.0); SODIUM 138 mmol/L (132-148); TOTAL PROTEIN 8.1 g/dL (5.8-8.3)
[2017-01-30 18:50] VITALS: TEMP 98.9
[2017-01-30 18:53] LABS: TROPONIN I < 0.01 ng/mL
[2017-01-30 19:47] LABS: URINE BILIRUBIN NEGATIVE (NEGATIVE); URINE BLOOD NEGATIVE (NEGATIVE); URINE GLUCOSE (UA) NEGATIVE (NEGATIVE); URINE KETONE NEGATIVE (NEGATIVE); URINE LEUKOCYTE ESTERASE NEGATIVE Leu/uL (NEGATIVE); URINE PROTEIN TRACE mg/dL (<30 mg/dL); URINE UROBILINOGEN 0.2 E.U./dL (<1 E.U./dL)
[2017-01-30 19:53] LABS: URINE APPEARANCE CLEAR (CLEAR); URINE COLOR YELLOW (YELLOW)
[2017-01-30 20:01] LABS: URINE RBC 0 - 2 /hpf (0-2); URINE WBC 0 - 2 /hpf (0-6)
[2017-01-31 02:25] VITALS: BP 125/75; PULSE 85; RESP 20; O2SAT 98
--- NOTE | 2017-01-31 10:46 | CARD ---
APPROVED REPORT EKG Measurement Heart [id number] CT [id number] [id number] <Conclusion> Sinus tachycardia Otherwise normal ECG
== END 2017-01-30 19:40 | disposition home or self-care (01) ==
LOC: ED 17:49
DX: F25.9 Schizoaffective disorder, unspecified (principal)

== ENCOUNTER 2017-06-16 16:22 | Emergency (ER) | payer MEDICAID, OTHER ==
[2017-06-16 16:23] VITALS: BMI 32.5
[2017-06-16 17:06] VITALS: TEMP 98
--- NOTE | 2017-06-16 17:09 | ED PDOC ---
Arrival/HPI - General Time Seen by Provider: 06/16/17 16:48 Historian: Patient - History of Present Illness Narrative History of Present Illness (Text): 06/16/17 17:03 Pt is a 37 yr female with a pmh of PCOS and anxiety that presents today with concerns for a vaginal infection and acne on her face among a variety of other concerns. Patient states that she is scheduled to see her telecommunications facility examiner tomorrow but feels anxious and worried about her condition. Reports frequency and urgency of passing urine and a foul smell. Denies fever, n/v/d, back pain, chest pain, shortness of breath,stomach pain or any other complaints Time/Duration: < week Symptom Onset: Gradual Symptom Course: Unchanged Quality: Unable to Describe Severity Level: 3, Mild Activities at Onset: Rest Context: Home Past Medical History - Provider Review Nursing Documentation Reviewed: Yes - Travel History Have you recently traveled outside [place] w/in the past 3 mons?: No - Past History Past History: Non-Contributing - Infectious Disease Hx of Infectious Diseases: None - Tetanus Immunization Tetanus Immunization: Unknown - Cardiac Hx Pacemaker: No - Pulmonary Hx Tuberculosis: No - Neurological Hx Seizures: No - HEENT Hx HEENT Disorder: No - Renal Hx Renal Disorder: No - Endocrine/Metabolic Hx Endocrine Disorders: No - Hematological/Oncological Hx Cancer: No - Integumentary Hx Dermatological Disorder: No - Musculoskeletal/Rheumatological Hx Musculoskeletal Disorders: Yes Hx Back Pain: Yes - Gastrointestinal Hx Gastrointestinal Disorders: No - Genitourinary/Gynecological Hx Sexually Transmitted Diseases: No - Psychiatric Hx Anxiety: Yes Hx Bipolar Disorder: Yes Hx Depression: Yes Hx Schizophrenia: Yes Hx Substance Use: No - Surgical History Other/Comment: neck surgery 2013 - Anesthesia Hx Anesthesia: Yes Hx Anesthesia Reactions: No Hx Malignant Hyperthermia: No - Suicidal Assessment Feels Threatened In Home Enviroment: No Family/Social History - Physician Review Nursing Documentation Reviewed: Yes Family/Social History: Unknown Family HX Smoking Status: Never Smoked Hx Alcohol Use: No Hx Substance Use: No Hx Substance Use Treatment: No Allergies/Home Meds Allergies/Adverse Reactions: Allergies No Known Allergies Allergy (Verified 06/16/17 17:06) Home Medications: Home Meds Medication Instructions Recorded Confirmed No Known Home Med 06/16/17 06/16/17 Review of Systems - Physician Review All systems were reviewed & negative as marked: Yes - Review of Systems Constitutional: Normal Eyes: Normal ENT: Normal Respiratory: Normal Cardiovascular: Normal Gastrointestinal: Normal Genitourinary Female: Dysuria, Frequency, Urine Output Changes, Vaginal Discharge Musculoskeletal: Normal Skin: Normal, Rash (acne on chin and dry skin on forehead) Neurological: Normal Endocrine: Normal Hemo/Lymphatic: Normal Psychiatric: Anxiety, Depression Physical Exam Vital Signs Reviewed: Yes Vital Signs Temp Pulse Resp BP Pulse Ox 06/16/17 18:45 80 16 128/76 99 06/16/17 17:02 98 F 70 18 137/87 98 Temperature: Afebrile Blood Pressure: Normal Pulse: Regular Respiratory Rate: Normal Appearance: Positive for: Well-Appearing, Non-Toxic, Uncomfortable Pain Distress: None Mental Status: Positive for: Alert and Oriented X 3, Agitated - Systems Exam Head: Present: Atraumatic, Normocephalic Pupils: Present: PERRL Extroacular Muscles: Present: EOMI Conjunctiva: Present: Normal Mouth: Present: Moist Mucous Membranes Neck: Present: Normal Range of Motion Respiratory/Chest: Present: Clear to Auscultation, Good Air Exchange. No: Respiratory Distress, Accessory Muscle Use Cardiovascular: Present: Regular Rate and Rhythm, Normal S1, S2. No: Murmurs Abdomen: No: Tenderness, Distention, Peritoneal Signs Genitourinary/Pelvic Exam: Present: Normal External Genitalia, Vaginal Discharge (white, curd-like, no odor). No: Vaginal Bleeding, Vaginal Lesions, Adenexal Tenderness, Adenexal Mass, Cervical Motion Tendernes, Odor Back: Present: Normal Inspection. No: CVA Tenderness, Midline Tenderness, Paraspinal Tenderness, Pain with Leg Raise Upper Extremity: Present: Normal Inspection. No: Cyanosis, Edema Lower Extremity: Present: Normal Inspection. No: Edema Neurological: Present: GCS=15, CN II-XII Intact, Speech Normal Skin: Present: Warm, Dry, Normal Color, Other (facial acne and hirsutism). No: Rashes Psychiatric: Present: Alert, Oriented x 3, Normal Insight, Normal Concentration Medical Decision Making ED Course and Treatment: 06/16/17 17:09 Impression Pt is a 37 yr female with a pmh of PCOS and anxiety that presents today with concerns for a vaginal infection and acne on her face among a variety of other concerns. Patient states that she is scheduled to see her telecommunications facility examiner tomorrow but is panicked. Plan UA and pelvic exam Assess and dispo Progress note 06/16/17 17:57 UA clean; pt continues to c/o her hair causing pruritus and acne pelvic exam-->copious amts of white, curd-like dc from the vagina, no irritation and no findings on internal pelvic exam; vaginal swab taken Diflucan 150 mg given STAT Pt reports scheduled appt with telecommunications facility examiner tomorrow; discussed importance of keeping appt VSS and mentating well on dc - Lab Interpretations Lab Results: Lab Results 06/16/17 17:10: Urine Color Yellow, Urine Appearance Clear, Urine pH 7.5, Ur Specific [place] 1.020, Urine Protein Trace H, Urine Glucose (UA) Negative, Urine Ketones Negative, Urine Blood Negative, Urine Nitrate Negative, Urine Bilirubin Negative, Urine Urobilinogen 0.2, Ur Leukocyte Esterase Negative, Urine RBC 0 - 2, Urine WBC 2 - 5, Ur Epithelial Cells 4 - 5, Urine Bacteria Mod - Medication Orders Current Medication Orders: Discontinued Medications Fluconazole (Diflucan) 150 mg PO STAT STA PRN Reason: Protocol Stop: 06/16/17 18:27 Last Admin: 06/16/17 19:03 Dose: 150 mg Disposition/Present on Arrival - Present on Arrival Any Indicators Present on Arrival: Yes History of DVT/PE: No History of Uncontrolled Diabetes: No Urinary Catheter: No History Surgical Site Infection Following: None - Disposition Have Diagnosis and Disposition been Completed?: Yes Diagnosis: Vaginal yeast infection, Anxiety, Incontinence in female, Urge incontinence Disposition: HOME/ ROUTINE Disposition Time: 18:23 Patient Plan: Discharge Condition: STABLE Discharge Instructions (ExitCare): Vaginal Yeast Infection (DC), Urinary Incontinence, Female (DC) Additional Instructions: Beatriz, thank you for letting us take care of you today. Your provider was BAILEY Solorio. You were treated for Vaginal Yeast Infection. The emergency medical care you received today was directed at your acute symptoms. If you were prescribed any medication, please fill it and take as directed. It may take several days for your symptoms to resolve. Return to the Emergency Department if your symptoms worsen, do not improve, or if you have any other problems. Please contact your doctor or call one of the physicians/clinics you have been referred to that are listed on the Patient Visit Information form that is included in your discharge packet. Bring any paperwork you were given at discharge with you along with any medications you are taking to your follow up visit. Our treatment cannot replace ongoing medical care by a primary care provider (PCP) outside of the emergency department. Thank you for allowing the [facility] team to be part of your care today. If you had a blood, urine, or wound culture: It will take several days for the results, if any change in treatment is needed we will contact you. If you had an STI test: It will take 48 hours for the results. Please call after 1 week if you have not heard back. Referrals: Pablito Leal MD [Primary Care Provider] - Follow up with primary Forms: [email or web address] ([place])
[2017-06-16 17:20] LABS: PH,URINE 7.5 (4.7-8.0); URINE BILIRUBIN NEGATIVE (NEGATIVE); URINE BLOOD NEGATIVE (NEGATIVE); URINE GLUCOSE (UA) NEGATIVE (NEGATIVE); URINE LEUKOCYTE ESTERASE NEGATIVE Leu/uL (NEGATIVE); URINE PROTEIN TRACE mg/dL (<30 mg/dL); URINE UROBILINOGEN 0.2 E.U./dL (<1 E.U./dL)
[2017-06-16 17:33] LABS: URINE APPEARANCE CLEAR (CLEAR); URINE COLOR YELLOW (YELLOW)
[2017-06-16 17:34] LABS: URINE BACTERIA MOD (NEG); URINE RBC 0 - 2 /hpf (0-2)
[2017-06-16 18:45] VITALS: BP 128/76; PULSE 80; RESP 16; O2SAT 99
== END 2017-06-16 19:20 | disposition home or self-care (01) ==
LOC: ED 16:22
DX: B37.3 Candidiasis of vulva and vagina (principal); F41.9 Anxiety disorder, unspecified; N39.41 Urge incontinence

== ENCOUNTER 2017-06-28 14:33 | Emergency (ER) | payer OTHER ==
[2017-06-28 15:04] VITALS: BMI 35.8
[2017-06-28 15:10] VITALS: BP 148/88; PULSE 91; RESP 18; O2SAT 98
--- NOTE | 2017-06-28 15:11 | ED PDOC ---
Arrival/HPI - General Time Seen by Provider: 06/28/17 15:07 Historian: Patient - History of Present Illness Narrative History of Present Illness (Text): 06/28/17 15:07 37 y/o female, no significant pmh, psychiatric history including bipolar, c/o facial/neck itching x 1 month which she has been seen by her own pmd Dr. Hansen which told her this is allergy. Pt. stated that she never follow up with a poultry processing supervisor, no change in soap/clothing/detergent, no fever or chills, no night sweat, no rash, no numbness or tingling, no other medical or psychological complaints. Past Medical History - Provider Review Nursing Documentation Reviewed: Yes - Past History Past History: Non-Contributing - Infectious Disease Hx of Infectious Diseases: None - Tetanus Immunization Tetanus Immunization: Unknown - Cardiac Hx Pacemaker: No - Pulmonary Hx Tuberculosis: No - Neurological Hx Seizures: No - HEENT Hx HEENT Disorder: No - Renal Hx Renal Disorder: No - Endocrine/Metabolic Hx Endocrine Disorders: No - Hematological/Oncological Hx Cancer: No - Integumentary Hx Dermatological Disorder: No - Musculoskeletal/Rheumatological Hx Musculoskeletal Disorders: Yes Hx Back Pain: Yes - Gastrointestinal Hx Gastrointestinal Disorders: No - Genitourinary/Gynecological Hx Sexually Transmitted Diseases: No - Psychiatric Hx Anxiety: Yes Hx Bipolar Disorder: Yes Hx Depression: Yes Hx Schizophrenia: Yes Hx Substance Use: No - Surgical History Other/Comment: neck surgery 2013 - Anesthesia Hx Anesthesia: Yes Hx Anesthesia Reactions: No Hx Malignant Hyperthermia: No - Suicidal Assessment Feels Threatened In Home Enviroment: No Family/Social History - Physician Review Nursing Documentation Reviewed: Yes Family/Social History: Unknown Family HX Smoking Status: Never Smoked Hx Alcohol Use: No Hx Substance Use: No Hx Substance Use Treatment: No Allergies/Home Meds Allergies/Adverse Reactions: Allergies No Known Allergies Allergy (Verified 06/28/17 15:03) Review of Systems - Review of Systems Constitutional: absent: Fatigue, Fevers Eyes: absent: Vision Changes ENT: absent: Hearing Changes Respiratory: absent: SOB, Cough Cardiovascular: absent: Chest Pain Gastrointestinal: absent: Abdominal Pain, Nausea, Vomiting Skin: Rash, Pruritis, Skin Lesions. absent: Laceration Neurological: absent: Headache, Dizziness Psychiatric: absent: Anxiety, Depression Physical Exam Vital Signs Temp Pulse Resp BP Pulse Ox 06/28/17 15:10 98.6 F 91 H 18 148/88 98 - Systems Exam Head: Present: Atraumatic, Normocephalic, Other (no visible scalp rash noted) Pupils: Present: PERRL Extroacular Muscles: Present: EOMI Conjunctiva: Present: Normal Mouth: Present: Moist Mucous Membranes Neck: Present: Normal Range of Motion Respiratory/Chest: Present: Clear to Auscultation, Good Air Exchange. No: Respiratory Distress, Accessory Muscle Use Cardiovascular: Present: Regular Rate and Rhythm, Normal S1, S2. No: Murmurs Abdomen: No: Tenderness, Distention, Peritoneal Signs Back: Present: Normal Inspection Upper Extremity: Present: Normal Inspection. No: Cyanosis, Edema Lower Extremity: Present: Normal Inspection. No: Edema Neurological: Present: GCS=15, Speech Normal, Motor Func Grossly Intact, Gait Normal, Memory Normal Skin: Present: Warm, Dry, Rashes (visible mild scattered papule rash noted on the neck region, no bullseye or target signs, no cellulitis or streaking, no ulcers. ), Normal Color Psychiatric: Present: Alert, Oriented x 3, Normal Insight, Normal Concentration Medical Decision Making ED Course and Treatment: 06/28/17 15:15 -Urine hcg is negative. -Discharge home with xyzal, lotrisone, keep the skin cool and dry, follow up with your own pmd and poultry processing supervisor within 2 days, return to the ER for any new or worsening signs or symptoms. - PA / DRY PAN FEEDER / Resident Statement /DO has reviewed & agrees with the documentation as recorded. Disposition/Present on Arrival - Present on Arrival Any Indicators Present on Arrival: No History of DVT/PE: No History of Uncontrolled Diabetes: No Urinary Catheter: No History of Decub. Ulcer: No History Surgical Site Infection Following: None - Disposition Have Diagnosis and Disposition been Completed?: Yes Diagnosis: Dermatitis Disposition: HOME/ ROUTINE Disposition Time: 15:16 Patient Plan: Discharge Condition: GOOD Additional Instructions: -Discharge home with xyzal, lotrisone, keep the skin cool and dry, follow up with your own pmd and poultry processing supervisor within 2 days, return to the ER for any new or worsening signs or symptoms. Prescriptions: Clotrimazole/Betamethasone [Lotrisone] 1 appful EXT BID #30 g Levocetirizine Dihydrochloride [Xyzal] 5 mg PO DAILY PRN #10 tablet PRN Reason: Other Referrals: Carol Joel MD [Staff Provider] - Follow up with primary Forms: WORK NOTE
[2017-06-28 15:17] VITALS: TEMP 98.6
== END 2017-06-28 15:56 | disposition home or self-care (01) ==
LOC: ED 14:33
DX: L30.9 Dermatitis, unspecified (principal)

== ENCOUNTER 2017-07-16 16:27 | Emergency (ER) | payer OTHER ==
--- NOTE | 2017-07-16 16:41 | ED PDOC ---
Arrival/HPI - General Time Seen by Provider: 07/16/17 16:29 Historian: Patient, EMS - History of Present Illness Narrative History of Present Illness (Text): 07/16/17 16:30 37 y/o female, pmh including chronic neck pain with disc herniation, psychiatric history including bipolar, nkda, c/o neck pain since 2012. Pt. stated that she recently change the PMD and unable to see Dr. Stringer for this chronic neck pain over 5 years which she had surgical procedure done. Pt been having pain on and off for the past 5 years, no worsening or increasing pain, no numbness or tingling, no palpitation, no rash, no night sweat, no other medical or psychological complaints. Past Medical History - Provider Review Nursing Documentation Reviewed: Yes - Past History Past History: Non-Contributing - Infectious Disease Hx of Infectious Diseases: None - Tetanus Immunization Tetanus Immunization: Unknown - Cardiac Hx Pacemaker: No - Pulmonary Hx Tuberculosis: No - Neurological Hx Seizures: No - HEENT Hx HEENT Disorder: No - Renal Hx Renal Disorder: No - Endocrine/Metabolic Hx Endocrine Disorders: No - Hematological/Oncological Hx Cancer: No - Integumentary Hx Dermatological Disorder: No - Musculoskeletal/Rheumatological Hx Musculoskeletal Disorders: Yes Hx Back Pain: Yes - Gastrointestinal Hx Gastrointestinal Disorders: No - Genitourinary/Gynecological Hx Sexually Transmitted Diseases: No - Psychiatric Hx Anxiety: Yes Hx Bipolar Disorder: Yes Hx Depression: Yes Hx Schizophrenia: Yes Hx Substance Use: No - Surgical History Other/Comment: neck surgery 2013 - Anesthesia Hx Anesthesia: Yes Hx Anesthesia Reactions: No Hx Malignant Hyperthermia: No - Suicidal Assessment Feels Threatened In Home Enviroment: No Family/Social History - Physician Review Nursing Documentation Reviewed: Yes Family/Social History: Unknown Family HX Smoking Status: Never Smoked Hx Alcohol Use: No Hx Substance Use: No Hx Substance Use Treatment: No Allergies/Home Meds Allergies/Adverse Reactions: Allergies No Known Allergies Allergy (Verified 06/28/17 15:03) Review of Systems - Review of Systems Constitutional: absent: Fatigue, Fevers Eyes: absent: Vision Changes ENT: absent: Hearing Changes Respiratory: absent: SOB, Cough Cardiovascular: absent: Chest Pain Gastrointestinal: absent: Abdominal Pain, Nausea, Vomiting Musculoskeletal: Neck Pain. absent: Arthralgias, Back Pain, Myalgias Skin: absent: Rash, Pruritis, Skin Lesions Neurological: absent: Headache, Dizziness Psychiatric: absent: Anxiety, Depression, Suicidal Ideation Physical Exam - Systems Exam Head: Present: Atraumatic, Normocephalic Pupils: Present: PERRL Extroacular Muscles: Present: EOMI Conjunctiva: Present: Normal Ears: Present: NORMAL TM, Normal Canal. No: Erythema Mouth: Present: Moist Mucous Membranes Pharnyx: No: ERYTHEMA, EXUDATE, TONSILS ENLARGED Nose (External): Present: Atraumatic. No: Abrasion, Contusion, Laceration Nose (Internal): Present: Normal Inspection, No Active Bleeding. No: Rhinorrhea Neck: Present: Normal Range of Motion, Paraspinal Tenderness (+ttp and mild spasm noted rt. paraspinal muscle region. ). No: MIDLINE TENDERNESS Respiratory/Chest: Present: Clear to Auscultation, Good Air Exchange. No: Respiratory Distress, Accessory Muscle Use Cardiovascular: Present: Regular Rate and Rhythm, Normal S1, S2. No: Murmurs Abdomen: No: Tenderness, Distention, Peritoneal Signs, Rebound, Guarding Back: Present: Normal Inspection Upper Extremity: Present: Normal Inspection. No: Cyanosis, Edema Lower Extremity: Present: Normal Inspection. No: Edema Neurological: Present: GCS=15, CN II-XII Intact, Speech Normal, Motor Func Grossly Intact, Gait Normal, Memory Normal Skin: Present: Warm, Dry, Normal Color. No: Rashes Psychiatric: Present: Alert, Oriented x 3, Normal Insight, Normal Concentration Medical Decision Making ED Course and Treatment: 07/16/17 16:58 -Toradol/valium/percocet/lidoderm -Cervical xray -Observe and reassess 07/16/17 18:10 -Urine hcg is negative -Cervical xray show Status post ACDF at C5-6, no hardware complications. Moderate degenerative disc disease at C5-6. -Pt. feels better now, request to be discharged home, will discharge home. -Discharge home with motrin, flexeril, lidoderm patch, follow up with your own pmd and pain management/orthopedic within 2 days, return to the ER for any new or worsening signs or symptoms. - RAD Interpretation Radiology Orders: 07/16/17 17:03 CERVICAL SPINE >18YR W/OBLIQUE [RAD] Stat - Medication Orders Current Medication Orders: Lidocaine (Lidoderm) 1 ea TD DAILY ANUSHA Discontinued Medications Diazepam (Valium) 5 mg PO ONCE ONE PRN Reason: Protocol Stop: 07/16/17 17:04 Ketorolac Tromethamine (Toradol) 60 mg IM STAT STA Stop: 07/16/17 17:04 Oxycodone/Acetaminophen (Percocet 5/325 Mg Tab) 1 tab PO STAT STA Stop: 07/16/17 17:04 - PA / LAW RESEARCHER / Resident Statement MD/ has reviewed & agrees with the documentation as recorded. Disposition/Present on Arrival - Present on Arrival Any Indicators Present on Arrival: No History of DVT/PE: No History of Uncontrolled Diabetes: No Urinary Catheter: No History of Decub. Ulcer: No History Surgical Site Infection Following: None - Disposition Have Diagnosis and Disposition been Completed?: Yes Diagnosis: Chronic neck pain Disposition: HOME/ ROUTINE Disposition Time: 16:59 Patient Plan: Discharge Patient Problems: Current Active Problems Problem Status Onset Chronic neck pain Acute Condition: IMPROVED Additional Instructions: -Discharge home with motrin, flexeril, lidoderm patch, follow up with your own pmd and pain management/orthopedic within 2 days, return to the ER for any new or worsening signs or symptoms. Prescriptions: Cyclobenzaprine [Cyclobenzaprine HCl] 10 mg PO TID PRN #21 tab PRN Reason: Other Ibuprofen [Motrin Tab] 600 mg PO QID PRN #30 tab PRN Reason: Other Lidocaine 5% [Lidoderm] 1 patch TP DAILY PRN #14 patch PRN Reason: Other Referrals: Nithya Stringer MD [Primary Care Provider] - Follow up with primary Yolanda Pollock MD [Staff Provider] - Follow up with primary Forms: WORK NOTE
[2017-07-16 17:02] VITALS: BMI 36.6
[2017-07-16] MEDS ORDERED: Oxycodone/Acetaminophen 5/325 mg Tab PO STA (17:03)
[2017-07-16] MEDS ORDERED: Lidocaine 5% Patch TD SCH (17:15)
--- NOTE | 2017-07-16 18:06 | RAD ---
PROCEDURE: Cervical Spine Radiographs. HISTORY: Pain. COMPARISON: None. FINDINGS: BONES: There is normal alignment of the cervical vertebral bodies. There is straightening of the cervical spine with loss of normal cervical lordosis. Vertebral height is normal. The craniocervical junction is normal. The atlantoaxial joint is normal DISC SPACES: Status post ACDF at C4-5 with metallic disc graft. There is mild degenerative disc disease at C 2 3, C3-4 and moderate degenerative disc disease at C5-6. There is moderate right neural foraminal narrowing at C5-6. SOFT TISSUES: Normal. No prevertebral soft tissue swelling. OTHER FINDINGS: None. IMPRESSION: Status post ACDF at C5-6, no hardware complications. Moderate degenerative disc disease at C5-6.
[2017-07-16 18:36] VITALS: BP 122/78; PULSE 77; RESP 16; TEMP 97.9; O2SAT 99
== END 2017-07-16 18:30 | disposition home or self-care (01) ==
LOC: ED 16:27
DX: G89.29 Other chronic pain (principal); M54.2 Cervicalgia; F20.9 Schizophrenia, unspecified
CPT/HCPCS: 72050; 96372; 99282; J1885

== ENCOUNTER 2017-07-18 01:30 | Emergency (ER) | payer OTHER ==
[2017-07-18 01:30] VITALS: BMI 36.6
== END 2017-07-18 01:55 | disposition left against medical advice (07) ==
LOC: ED 01:30
DX: Z02.89 Encounter for other administrative examinations (principal); H92.09 Otalgia, unspecified ear

== ENCOUNTER 2017-09-12 15:03 | Emergency (ER) | payer OTHER ==
[2017-09-12 15:03] VITALS: BMI 36.6
--- NOTE | 2017-09-12 15:28 | ED PDOC ---
Arrival/HPI - General Chief Complaint: Abnormal Skin Integrity Time Seen by Provider: 09/12/17 15:25 Historian: Patient - History of Present Illness Narrative History of Present Illness (Text): 09/12/17 15:25 This 37 yo female with pmh hyperlipidemia, obesity, presents to this ED c/o generalized pruritic rash x 3 years. Patient stated she has gone to multiple ED and PMDs for same rash within last 3 years. Patient denies other somatic complains. Denies sob, wheezing, hives, fever, recent travel, sick contact, dizziness, or abnormal gait. Patient admits not drinking enough fluids, and a Hx. dry skin Time/Duration: Other (see hpi) Context: Home Past Medical History - Provider Review Nursing Documentation Reviewed: Yes - Past History Past History: Non-Contributing - Infectious Disease Hx of Infectious Diseases: None - Tetanus Immunization Tetanus Immunization: Unknown - Cardiac Hx Cardiac Disorders: No - Pulmonary Hx Respiratory Disorders: No - Neurological Hx Neurological Disorder: No - HEENT Hx HEENT Disorder: No - Renal Hx Renal Disorder: No - Endocrine/Metabolic Hx Endocrine Disorders: No - Hematological/Oncological Hx Blood Disorders: No - Integumentary Hx Dermatological Disorder: No - Musculoskeletal/Rheumatological Hx Musculoskeletal Disorders: Yes Hx Back Pain: Yes - Gastrointestinal Hx Gastrointestinal Disorders: No - Genitourinary/Gynecological Hx Sexually Transmitted Diseases: No - Psychiatric Hx Psychophysiologic Disorder: Yes Hx Anxiety: Yes Hx Bipolar Disorder: Yes Hx Depression: Yes Hx Schizophrenia: Yes Hx Substance Use: No - Surgical History Other/Comment: neck surgery 2013 - Anesthesia Hx Anesthesia: Yes Hx Anesthesia Reactions: No Hx Malignant Hyperthermia: No - Suicidal Assessment Feels Threatened In Home Enviroment: No Family/Social History - Physician Review Nursing Documentation Reviewed: Yes Family/Social History: Other (noncontributory) Smoking Status: Never Smoked Hx Alcohol Use: No Hx Substance Use: No Hx Substance Use Treatment: No Allergies/Home Meds Allergies/Adverse Reactions: Allergies No Known Allergies Allergy (Verified 09/12/17 15:07) Review of Systems - Review of Systems Constitutional: Normal. absent: Fatigue, Weight Change, Fevers Eyes: Normal ENT: Normal Respiratory: Normal Cardiovascular: Normal Gastrointestinal: Normal Genitourinary Female: Normal Musculoskeletal: Normal Skin: Rash, Pruritis. absent: Skin Lesions, Laceration, Abscess, Ulcer, Cellulitis, Other Neurological: Normal Endocrine: Normal Hemo/Lymphatic: Normal Psychiatric: Normal Physical Exam Vital Signs Temp Pulse Resp BP Pulse Ox 09/12/17 15:07 98.9 F 79 16 112/52 L 97 Temperature: Afebrile Blood Pressure: Normal Pulse: Regular Respiratory Rate: Normal Appearance: Positive for: Well-Appearing, Non-Toxic, Comfortable Pain Distress: None Mental Status: Positive for: Alert and Oriented X 3 - Systems Exam Head: Present: Atraumatic, Normocephalic Pupils: Present: PERRL Extroacular Muscles: Present: EOMI Conjunctiva: Present: Normal Mouth: Present: Moist Mucous Membranes Neck: Present: Normal Range of Motion Respiratory/Chest: Present: Clear to Auscultation, Good Air Exchange. No: Respiratory Distress, Accessory Muscle Use Cardiovascular: Present: Regular Rate and Rhythm, Normal S1, S2. No: Murmurs Abdomen: No: Tenderness, Distention, Peritoneal Signs Back: Present: Normal Inspection Upper Extremity: Present: Normal Inspection. No: Cyanosis, Edema Lower Extremity: Present: Normal Inspection. No: Edema Neurological: Present: GCS=15, CN II-XII Intact, Speech Normal Skin: Present: Warm, Dry, Normal Color. No: Rashes, Diaphoretic, Erythematous, Induration, Hot, Cold, Laceration, Abscess, Abrasion Psychiatric: Present: Alert, Oriented x 3, Normal Insight, Normal Concentration Medical Decision Making ED Course and Treatment: 09/12/17 15:30 Re-evaluation. Patient feels better. Discussed results and plan with patient who expresses understanding. All questions answered and there is agreement with the plan to discharge home with instructions. Patient stable for discharge. Return if symptoms persist or worsen. Re-evaluation Time: 15:31 Reassessment Condition: Re-examined, Improved Disposition/Present on Arrival - Present on Arrival Any Indicators Present on Arrival: No History of DVT/PE: No History of Uncontrolled Diabetes: No Urinary Catheter: No History of Decub. Ulcer: No History Surgical Site Infection Following: None - Disposition Have Diagnosis and Disposition been Completed?: Yes Diagnosis: Rash and other nonspecific skin eruption Disposition: HOME/ ROUTINE Disposition Time: 15:32 Patient Plan: Discharge Condition: GOOD Discharge Instructions (ExitCare): Skin Rash (DC) Additional Instructions: Call poultryman for follow up visit in 1-2 days. Take medication as instructed. Drink enough fluids. Avoid spicy food, coffee, tea. Apply Vaseline ointment after showers daily. Take shower 3 hours before going to bed. Use hypo allergic soap and detergent. Return to emergency if rash worsen. Prescriptions: Hydroxyzine Pamoate [Vistaril] 25 mg PO Q6H PRN #30 capsule PRN Reason: Itching / Pruritus Referrals: Carol Joel MD [Staff Provider] - Follow up with primary
[2017-09-12 16:06] VITALS: BP 109/52; PULSE 75; RESP 20; TEMP 98; O2SAT 99
== END 2017-09-12 16:05 | disposition home or self-care (01) ==
LOC: ED 15:03
DX: R21 Rash and other nonspecific skin eruption (principal); E78.5 Hyperlipidemia, unspecified; F20.9 Schizophrenia, unspecified

== ENCOUNTER 2017-09-26 14:48 | Emergency (ER) | payer OTHER ==
[2017-09-26 14:49] VITALS: BMI 36.6
--- NOTE | 2017-09-26 15:10 | ED PDOC ---
Arrival/HPI - General Chief Complaint: Psychiatric Evaluation Time Seen by Provider: 09/26/17 14:50 Historian: Patient - History of Present Illness Narrative History of Present Illness (Text): 09/26/17 15:05 This 37 yo female with pmh hyperlipidemia, obesity, bipolar, presents to this ED for psychiatric evaluation. Patient stated her family ' for ukn reason called the police". Police later called ambulance to bring her to this ED. Patient stated she is sweating too much, and this is causing her to have difficulty thinking. Patient has flight of ideas, and she appears anxious. Patient noted a chronic neck pain. Patoient denies SI. HI, hallucination, paranoia, weakness, paresthesias, dizziness, or abnormal gait. Time/Duration: Other (see hpi) Context: Home Past Medical History - Provider Review Nursing Documentation Reviewed: Yes - Past History Past History: Non-Contributing - Infectious Disease Hx of Infectious Diseases: None - Tetanus Immunization Tetanus Immunization: Unknown - Cardiac Hx Cardiac Disorders: No - Pulmonary Hx Respiratory Disorders: No - Neurological Hx Neurological Disorder: No - HEENT Hx HEENT Disorder: No - Renal Hx Renal Disorder: No - Endocrine/Metabolic Hx Endocrine Disorders: No - Hematological/Oncological Hx Blood Disorders: No - Integumentary Hx Dermatological Disorder: No - Musculoskeletal/Rheumatological Hx Musculoskeletal Disorders: Yes Hx Back Pain: Yes - Gastrointestinal Hx Gastrointestinal Disorders: No - Genitourinary/Gynecological Hx Sexually Transmitted Diseases: No - Psychiatric Hx Psychophysiologic Disorder: Yes Hx Anxiety: Yes Hx Bipolar Disorder: Yes Hx Depression: Yes Hx Schizophrenia: Yes Hx Substance Use: No - Surgical History Other/Comment: neck surgery 2013 - Anesthesia Hx Anesthesia: Yes Hx Anesthesia Reactions: No Hx Malignant Hyperthermia: No - Suicidal Assessment Feels Threatened In Home Enviroment: No Family/Social History - Physician Review Nursing Documentation Reviewed: Yes Family/Social History: Other (noncontributory) Smoking Status: Never Smoked Hx Alcohol Use: No Hx Substance Use: No Hx Substance Use Treatment: No Allergies/Home Meds Allergies/Adverse Reactions: Allergies No Known Allergies Allergy (Verified 09/12/17 15:07) Review of Systems - Review of Systems Constitutional: Other (see hpi). absent: Fatigue, Weight Change, Fevers Eyes: Normal ENT: Normal Respiratory: Normal. absent: SOB, Cough Cardiovascular: Normal. absent: Chest Pain, Palpitations Gastrointestinal: Normal. absent: Abdominal Pain, Nausea, Vomiting Genitourinary Female: Normal Musculoskeletal: Other (see hpi) Skin: Normal Neurological: Normal. absent: Headache, Dizziness, Focal Weakness, Gait Changes , Speech Changes, Facial Droop, Disequilibrium Endocrine: Normal Hemo/Lymphatic: Normal Psychiatric: Anxiety. absent: Depression, Suicidal Ideation Physical Exam Vital Signs Temp Pulse Resp BP Pulse Ox 09/26/17 17:41 98 F 75 19 129/72 99 09/26/17 15:01 98.1 F 96 H 18 133/91 H 100 Temperature: Afebrile Blood Pressure: Normal Pulse: Regular Respiratory Rate: Normal Appearance: Positive for: Well-Appearing, Non-Toxic, Comfortable Pain Distress: None Mental Status: Positive for: Alert and Oriented X 3 - Systems Exam Head: Present: Atraumatic, Normocephalic Pupils: Present: PERRL Extroacular Muscles: Present: EOMI Conjunctiva: Present: Normal Mouth: Present: Moist Mucous Membranes Neck: Present: Normal Range of Motion Respiratory/Chest: Present: Clear to Auscultation, Good Air Exchange. No: Respiratory Distress, Accessory Muscle Use Cardiovascular: Present: Regular Rate and Rhythm, Normal S1, S2. No: Murmurs Abdomen: No: Tenderness, Distention, Peritoneal Signs Back: Present: Normal Inspection Upper Extremity: Present: Normal Inspection. No: Cyanosis, Edema Lower Extremity: Present: Normal Inspection. No: Edema Neurological: Present: GCS=15, CN II-XII Intact, Speech Normal Skin: Present: Warm, Dry, Normal Color. No: Rashes Psychiatric: Present: Alert, Oriented x 3, Anxious Medical Decision Making ED Course and Treatment: 09/26/17 18:01 PES screener recommended d/c patient home with out-patient f/u for [facility]. PES screener provided information to patient. Re-evaluation Time: 18:02 Reassessment Condition: Re-examined, Improved - Lab Interpretations Lab Results: 09/26/17 16:02 09/26/17 16:02 Lab Results 09/26/17 16:02: Alcohol, Quantitative < 10 09/26/17 16:02: Salicylates < 1 L, Acetaminophen < 10.0 L 09/26/17 16:02: Urine Opiates Screen No result, Urine Methadone Screen No result , Ur Barbiturates Screen Negative, Ur Phencyclidine Scrn No result, Ur Amphetamines Screen Negative, U Benzodiazepines Scrn No result, U Oth Cocaine Metabols No result, U Cannabinoids Screen No result 09/26/17 16:02: Sodium 141, Potassium 4.2, Chloride 105, Carbon Dioxide 26, Anion Gap 15, BUN 18, Creatinine 0.7, Est GFR ( Amer) > 60, Est GFR (Non- Af Amer) > 60, Random Glucose 103, Calcium 9.6, Magnesium 1.8, Total Bilirubin 0.5, AST 27, ALT 55, Alkaline Phosphatase 63, Total Protein 7.7, Albumin 4.2, Globulin 3.5, Albumin/Globulin Ratio 1.2 09/26/17 16:02: Urine Color Yellow, Urine Appearance Clear, Urine pH 6.0, Ur Specific [place] >= 1.030, Urine Protein 30 H, Urine Glucose (UA) Negative, Urine Ketones Negative, Urine Blood Negative, Urine Nitrate Negative, Urine Bilirubin Negative, Urine Urobilinogen 0.2, Ur Leukocyte Esterase Negative, Urine RBC Negative, Urine WBC 2 - 5, Ur Epithelial Cells 3 - 4, Urine Bacteria Mod, Urine HCG, Qual Negative 09/26/17 16:02: WBC 9.1, RBC 4.96, Hgb 14.1, Hct 40.7, MCV 82.1 D, MCH 28.4, MCHC 34.6, RDW 12.8, Plt Count 368, MPV 9.4, Gran % 58.9, Lymph % (Auto) 33.2, [place] % (Auto) 6.5 H, Eos % (Auto) 1.0 L, Baso % (Auto) 0.4, Gran # 5.37, Lymph # (Auto) 3.0, [place] # (Auto) 0.6, Eos # (Auto) 0.1, Baso # (Auto) 0.04 I have reviewed the lab results: Yes Interpretation: No clinic. lab abnormalty - RAD Interpretation Narrative RAD Interpretations (Text): 09/26/17 16:46 FINDINGS: LUNGS: No active pulmonary disease. PLEURA: No significant pleural effusion identified, no pneumothorax apparent. CARDIOVASCULAR: Normal. OSSEOUS STRUCTURES: No significant abnormalities. VISUALIZED UPPER ABDOMEN: Normal. OTHER FINDINGS: None. IMPRESSION: No active disease. Radiology Orders: 09/26/17 15:04 CHEST PORTABLE [RAD] Stat - EKG Interpretation Interpreted by ED Physician: Yes (NSR @ [address] changes. Normal interval ) Type: 12 lead EKG Comparison: Similar to previous EKG - Medication Orders Current Medication Orders: Discontinued Medications Alprazolam (Xanax) 0.25 mg PO STAT STA PRN Reason: Protocol Stop: 09/26/17 15:27 Last Admin: 09/26/17 16:01 Dose: 0.25 mg Disposition/Present on Arrival - Present on Arrival Any Indicators Present on Arrival: No History of DVT/PE: No History of Uncontrolled Diabetes: No Urinary Catheter: No History of Decub. Ulcer: No History Surgical Site Infection Following: None - Disposition Have Diagnosis and Disposition been Completed?: Yes Diagnosis: Anxiety disorder, unspecified Disposition: HOME/ ROUTINE Disposition Time: 18:02 Patient Plan: Discharge Condition: GOOD Discharge Instructions (ExitCare): Anxiety, Adult (DC) Additional Instructions: Call [facility] for follow up visit in 1-2 days. Return to emergency if symptoms worsen. Referrals: [facility] [Outside] - Follow up with primary [facility] [Outside] - Follow up with primary Forms: [employer] (Georgian)
[2017-09-26 16:13] LABS: BASO # 0.04 K/mm3 (0.0-2.0); BASO % 0.4 % (0.0-3.0); EOS # 0.1 (0.0-0.7); GRAN # 5.37 (1.4-6.5); GRAN % 58.9 % (50.0-68.0); HEMOGLOBIN 14.1 g/dL (12.0-16.0); LYMPH % 33.2 % (22.0-35.0); MEAN CELL VOLUME 82.1 fl (80.0-105.0); MEAN CORPUSCULAR HEMOGLOBIN 28.4 pg (25.0-35.0); MEAN CORPUSCULAR HGB CONC 34.6 g/dl (31.0-37.0); MEAN PLATELET VOLUME 9.4 fl (7.0-11.0); MONO # 0.6 (0.1-0.6); MONO % 6.5 % (1.0-6.0); RBC 4.96 10^6/uL (3.5-6.1); RED CELL DISTRIBUTION WIDTH 12.8 % (11.5-14.5); WHITE BLOOD COUNT 9.1 10^3/ul (4.5-11.0)
[2017-09-26 16:15] LABS: URINE BILIRUBIN NEGATIVE (NEGATIVE); URINE BLOOD NEGATIVE (NEGATIVE); URINE GLUCOSE (UA) NEGATIVE (NEGATIVE); URINE LEUKOCYTE ESTERASE NEGATIVE Leu/uL (NEGATIVE); URINE PROTEIN 30 mg/dL (<30 mg/dL); URINE UROBILINOGEN 0.2 E.U./dL (<1 E.U./dL)
[2017-09-26 16:16] LABS: URINE COLOR YELLOW (YELLOW)
[2017-09-26 16:17] LABS: URINE APPEARANCE CLEAR (CLEAR)
[2017-09-26 16:22] LABS: ACETAMINOPHEN < 10.0 ug/ml (10.0-20.0); SALICYLATE < 1 mg/dL (2.0-20.0)
[2017-09-26 16:23] LABS: ALB/GLOB RATIO 1.2 (1.1-1.8); ALBUMIN 4.2 g/dL (3.0-4.8); ALT/SGPT 55 U/L (7-56); AST/SGOT 27 U/L (14-36); BLOOD UREA NITROGEN 18 mg/dL (7-21); CALCIUM 9.6 mg/dL (8.4-10.5); GFR AFRICAN-AMERICAN > 60; GFR NON-AFRICAN AMERICAN > 60
[2017-09-26 16:24] LABS: HCG,QUALITATIVE URINE NEGATIVE (NEGATIVE); URINE BACTERIA MOD (NEG); URINE RBC NEGATIVE /hpf (0-2)
--- NOTE | 2017-09-26 16:39 | RAD ---
Date of service: 09/26/2017 HISTORY: pes eval COMPARISON: No prior. FINDINGS: LUNGS: No active pulmonary disease. PLEURA: No significant pleural effusion identified, no pneumothorax apparent. CARDIOVASCULAR: Normal. OSSEOUS STRUCTURES: No significant abnormalities. VISUALIZED UPPER ABDOMEN: Normal. OTHER FINDINGS: None. IMPRESSION: No active disease.
[2017-09-26 16:59] LABS: BARBITURATES, UR NEGATIVE (NEGATIVE)
[2017-09-26 17:44] VITALS: RESP 19; TEMP 98; O2SAT 99
[2017-09-26 18:13] VITALS: BP 124/51; PULSE 85
--- NOTE | 2017-09-28 07:00 | CARD ---
APPROVED REPORT Date of service: 09/26/2017 EKG Measurement Heart [id number] <Conclusion> Normal sinus rhythm Cannot rule out Anterior infarct, age undetermined Abnormal ECG
== END 2017-09-26 18:11 | disposition home or self-care (01) ==
LOC: ED 14:48
DX: F41.9 Anxiety disorder, unspecified (principal); F20.9 Schizophrenia, unspecified

== ENCOUNTER 2017-09-27 13:48 | Emergency (ER) | payer OTHER ==
[2017-09-27 13:49] VITALS: BMI 36.6
--- NOTE | 2017-09-27 14:05 | ED PDOC ---
Arrival/HPI - General Chief Complaint: Abdominal Pain Time Seen by Provider: 09/27/17 13:52 Historian: Patient, EMS, Police - History of Present Illness Time/Duration: Prior to Arrival Symptom Onset: Gradual Symptom Course: Unchanged Severity Level: Moderate Associated Symptoms (Text): 09/27/17 14:02 Patient arrives from home via ambulance accompanied by police. Family called police for a crisis evaluation. Patient was seen in the emergency department yesterday for crisis evaluation and discharged home. States she is depressed. She denies suicidal or homicidal ideation. She has pressured speech. She has multiple somatic complaints which she believes are related to her psychiatric medications. 09/27/17 14:03 Patient had normal chest x-ray and EKG yesterday which have not been reordered for today. Past Medical History - Past History Past History: Non-Contributing - Infectious Disease Hx of Infectious Diseases: None - Tetanus Immunization Tetanus Immunization: Unknown - Cardiac Hx Cardiac Disorders: No - Pulmonary Hx Respiratory Disorders: No - Neurological Hx Neurological Disorder: No - HEENT Hx HEENT Disorder: No - Renal Hx Renal Disorder: No - Endocrine/Metabolic Hx Endocrine Disorders: No - Hematological/Oncological Hx Blood Disorders: No - Integumentary Hx Dermatological Disorder: No - Musculoskeletal/Rheumatological Hx Musculoskeletal Disorders: Yes Hx Back Pain: Yes - Gastrointestinal Hx Gastrointestinal Disorders: No - Genitourinary/Gynecological Hx Sexually Transmitted Diseases: No - Psychiatric Hx Psychophysiologic Disorder: Yes Hx Anxiety: Yes Hx Bipolar Disorder: Yes Hx Depression: Yes Hx Schizophrenia: Yes Hx Substance Use: No - Surgical History Other/Comment: neck surgery 2013 - Anesthesia Hx Anesthesia: Yes Hx Anesthesia Reactions: No Hx Malignant Hyperthermia: No - Suicidal Assessment Feels Threatened In Home Enviroment: No Family/Social History - Physician Review Nursing Documentation Reviewed: Yes Family/Social History: Unknown Family HX Smoking Status: Never Smoked Hx Alcohol Use: No Hx Substance Use: No Hx Substance Use Treatment: No Allergies/Home Meds Allergies/Adverse Reactions: Allergies No Known Allergies Allergy (Verified 09/27/17 13:51) Review of Systems - Physician Review All systems were reviewed & negative as marked: Yes - Review of Systems Constitutional: Fatigue. absent: Fevers Respiratory: absent: SOB Cardiovascular: absent: Chest Pain Gastrointestinal: absent: Abdominal Pain, Nausea, Vomiting Genitourinary Female: absent: Dysuria, Frequency Neurological: absent: Headache, Dizziness Physical Exam Vital Signs Temp Pulse Resp BP Pulse Ox 09/27/17 15:49 69 18 132/86 99 09/27/17 13:53 98.4 F 79 16 134/96 H 98 Temperature: Afebrile Blood Pressure: Hypertensive Pulse: Regular Respiratory Rate: Normal Appearance: Positive for: Well-Appearing, Non-Toxic, Comfortable Pain Distress: None Mental Status: Positive for: Alert and Oriented X 3 - Systems Exam Head: Present: Atraumatic, Normocephalic Pupils: Present: PERRL Extroacular Muscles: Present: EOMI Conjunctiva: Present: Normal Mouth: Present: Moist Mucous Membranes Pharnyx: No: ERYTHEMA, EXUDATE, TONSILS ENLARGED Neck: Present: Normal Range of Motion Respiratory/Chest: Present: Clear to Auscultation, Good Air Exchange, Decreased Breath Sounds. No: Respiratory Distress, Accessory Muscle Use Cardiovascular: Present: Regular Rate and Rhythm, Normal S1, S2. No: Murmurs Abdomen: No: Tenderness, Distention, Peritoneal Signs, Rebound, Guarding Upper Extremity: Present: Normal Inspection. No: Cyanosis, Edema Lower Extremity: Present: Normal Inspection. No: Edema Neurological: Present: GCS=15, CN II-XII Intact, Speech Normal, Motor Func Grossly Intact Skin: Present: Warm, Dry, Rashes (acne), Normal Color Psychiatric: Present: Alert, Oriented x 3, Normal Concentration, Depressed Mood , Delusional. No: Normal Affect, Normal Mood, Anxious, Agitated, Suicidal Ideation, Homicidal Ideation, Hallucinations, Intoxicated, Lethargic Medical Decision Making ED Course and Treatment: 09/27/17 15:51 Patient is waiting for crisis evaluation. 09/27/17 17:31 Seen and evaluated by crisis who will discharge home. - Lab Interpretations Lab Results: 09/27/17 14:20 09/27/17 14:20 Lab Results 09/27/17 14:42: Urine Opiates Screen Negative, Urine Methadone Screen Negative, Ur Barbiturates Screen Negative, Ur Phencyclidine Scrn Negative, Ur Amphetamines Screen Negative, U Benzodiazepines Scrn Negative, U Oth Cocaine Metabols Negative, U Cannabinoids Screen Negative 09/27/17 14:42: Urine Color Yellow, Urine Appearance Sl cloudy, Urine pH 6.0, Ur Specific [place] >= 1.030, Urine Protein Trace H, Urine Glucose (UA) Negative , Urine Ketones Negative, Urine Blood Negative, Urine Nitrate Negative, Urine Bilirubin Negative, Urine Urobilinogen 0.2, Ur Leukocyte Esterase Negative, Urine RBC Negative, Urine WBC 0 - 2, Ur Epithelial Cells 0 - 2, Urine Bacteria Mod, Urine HCG, Qual Negative 09/27/17 14:20: Alcohol, Quantitative < 10 09/27/17 14:20: Salicylates < 1 L, Acetaminophen < 10.0 L 09/27/17 14:20: Sodium 141, Potassium 4.0, Chloride 103, Carbon Dioxide 24, Anion Gap 17, BUN 14, Creatinine 0.8, Est GFR ( Amer) > 60, Est GFR (Non- Af Amer) > 60, Random Glucose 100, Calcium 9.7, Magnesium 1.7, Total Bilirubin 0.5, AST 28, ALT 46, Alkaline Phosphatase 64, Total Creatine Kinase 82, Total Protein 8.1, Albumin 4.4, Globulin 3.8, Albumin/Globulin Ratio 1.2 09/27/17 14:20: WBC 7.8, RBC 5.00, Hgb 14.0, Hct 41.4, MCV 82.8, MCH 28.0, MCHC 33.8, RDW 12.9, Plt Count 366, MPV 9.4, Gran % 52.2, Lymph % (Auto) 39.5 H, [place] % (Auto) 6.4 H, Eos % (Auto) 1.5, Baso % (Auto) 0.4, Gran # 4.05, Lymph # ( Auto) 3.1, [place] # (Auto) 0.5, Eos # (Auto) 0.1, Baso # (Auto) 0.03 Disposition/Present on Arrival - Present on Arrival Any Indicators Present on Arrival: No History of DVT/PE: No History of Uncontrolled Diabetes: No Urinary Catheter: No History of Decub. Ulcer: No History Surgical Site Infection Following: None - Disposition Have Diagnosis and Disposition been Completed?: Yes Diagnosis: Psychotic disorder Disposition: HOME/ ROUTINE Disposition Time: 17:41 Patient Plan: Discharge Condition: GOOD Discharge Instructions (ExitCare): Acute Psychosis (DC), Psychotherapy Referrals: Nithya Stringer MD [Primary Care Provider] - Follow up with primary Forms: [employer] (French)
[2017-09-27 14:51] LABS: BASO # 0.03 K/mm3 (0.0-2.0); BASO % 0.4 % (0.0-3.0); EOS # 0.1 (0.0-0.7); EOS % 1.5 % (1.5-5.0); GRAN # 4.05 (1.4-6.5); GRAN % 52.2 % (50.0-68.0); LYMPH # 3.1 (1.2-3.4); LYMPH % 39.5 % (22.0-35.0); MEAN CELL VOLUME 82.8 fl (80.0-105.0); MEAN CORPUSCULAR HGB CONC 33.8 g/dl (31.0-37.0); MEAN PLATELET VOLUME 9.4 fl (7.0-11.0); MONO # 0.5 (0.1-0.6); MONO % 6.4 % (1.0-6.0); RED CELL DISTRIBUTION WIDTH 12.9 % (11.5-14.5); WHITE BLOOD COUNT 7.8 10^3/ul (4.5-11.0)
[2017-09-27 14:53] LABS: URINE BILIRUBIN NEGATIVE (NEGATIVE); URINE BLOOD NEGATIVE (NEGATIVE); URINE GLUCOSE (UA) NEGATIVE (NEGATIVE); URINE LEUKOCYTE ESTERASE NEGATIVE Leu/uL (NEGATIVE); URINE PROTEIN TRACE mg/dL (<30 mg/dL); URINE UROBILINOGEN 0.2 E.U./dL (<1 E.U./dL)
[2017-09-27 15:00] LABS: HCG,QUALITATIVE URINE NEGATIVE (NEGATIVE); URINE APPEARANCE SL CLOUDY (CLEAR); URINE COLOR YELLOW (YELLOW)
[2017-09-27 15:04] LABS: URINE BACTERIA MOD (NEG); URINE EPITHELIAL CELLS 0 - 2 /hpf (0-5); URINE RBC NEGATIVE /hpf (0-2); URINE WBC 0 - 2 /hpf (0-6)
[2017-09-27 15:13] LABS: ACETAMINOPHEN < 10.0 ug/ml (10.0-20.0); SALICYLATE < 1 mg/dL (2.0-20.0)
[2017-09-27 15:14] LABS: BENZODIAZEPINES, UR NEGATIVE (NEGATIVE)
[2017-09-27 15:28] LABS: BARBITURATES, UR NEGATIVE (NEGATIVE); OPIATES, UR NEGATIVE (NEGATIVE); PHENCYCLIDINE, UR NEGATIVE (NEGATIVE)
[2017-09-27 15:28] LABS: ALB/GLOB RATIO 1.2 (1.1-1.8); ALBUMIN 4.4 g/dL (3.0-4.8); ALT/SGPT 46 U/L (7-56); AST/SGOT 28 U/L (14-36); BLOOD UREA NITROGEN 14 mg/dL (7-21); CALCIUM 9.7 mg/dL (8.4-10.5); GFR AFRICAN-AMERICAN > 60; GFR NON-AFRICAN AMERICAN > 60
[2017-09-27 16:06] VITALS: RESP 18
[2017-09-27 17:57] VITALS: BP 125/79; PULSE 78; TEMP 98.6; O2SAT 99
--- NOTE | 2017-09-28 15:11 | CP.PCM.PCO ---
Physician Communication Note - Physician Communication Note Physician Communication Note: case was NOT discussed with me, psychiatrist hotel front desk clerk was .
== END 2017-09-27 17:56 | disposition home or self-care (01) ==
LOC: ED 13:48
DX: F20.9 Schizophrenia, unspecified (principal)

== ENCOUNTER 2017-11-15 17:48 | Emergency (ER) | payer MEDICAID, OTHER ==
[2017-11-15 17:48] VITALS: BMI 36.6
[2017-11-15 18:04] VITALS: RESP 18; TEMP 98.5; O2SAT 100
--- NOTE | 2017-11-15 18:54 | ED PDOC ---
Arrival/HPI - General Chief Complaint: GI Problem Time Seen by Provider: 11/15/17 18:11 Historian: Patient - History of Present Illness Narrative History of Present Illness (Text): 11/15/17 18:58 37 yo F w/ PMH of PCOS on metformin, c/o chronic intermittent redness and irritation to her anus. Reports no rectal bleeding, rectal pain, abdominal pain , N/V/D, fever, chills, urinary symptoms, hemorrhoids. Patient admits to being sexually active, on occasions practices anal intercourse, last was >3 weeks ago. She does add that taking metformin will cause her to have intermittent loose stools. Past Medical History - Past History Past History: Non-Contributing - Infectious Disease Hx of Infectious Diseases: None - Tetanus Immunization Tetanus Immunization: Unknown - Cardiac Hx Hypertension: No Hx Pacemaker: No - Pulmonary Hx Respiratory Disorders: No - Neurological Hx Seizures: No - HEENT Hx HEENT Disorder: No - Renal Hx Renal Disorder: Yes Other/Comment: UTI - Endocrine/Metabolic Hx Endocrine Disorders: No - Hematological/Oncological Hx Blood Disorders: No - Integumentary Hx Dermatological Disorder: No - Musculoskeletal/Rheumatological Hx Musculoskeletal Disorders: Yes Hx Back Pain: Yes - Gastrointestinal Hx Gastrointestinal Disorders: No - Genitourinary/Gynecological Hx Sexually Transmitted Diseases: No - Psychiatric Hx Anxiety: Yes Hx Bipolar Disorder: Yes Hx Depression: Yes Hx Post Traumatic Stress Disorder: No Hx Schizophrenia: Yes Hx Substance Use: No - Surgical History Other/Comment: neck surgery 2013 - Anesthesia Hx Anesthesia: Yes Hx Anesthesia Reactions: No Hx Malignant Hyperthermia: No - Suicidal Assessment Feels Threatened In Home Enviroment: No Family/Social History Family/Social History: No Known Family HX Smoking Status: Never Smoked Hx Alcohol Use: No Hx Substance Use: No Hx Substance Use Treatment: No Allergies/Home Meds Allergies/Adverse Reactions: Allergies No Known Allergies Allergy (Verified 11/15/17 18:05) Review of Systems - Review of Systems Constitutional: absent: Fatigue, Fevers Cardiovascular: absent: Chest Pain, Palpitations Gastrointestinal: absent: Abdominal Pain, Diarrhea, Vomiting Musculoskeletal: absent: Arthralgias, Back Pain, Neck Pain Skin: Rash (to her anus). absent: Pruritis, Skin Lesions Physical Exam Vital Signs Temp Pulse Resp BP Pulse Ox 11/15/17 19:34 73 18 110/72 100 11/15/17 18:01 98.5 F 71 18 107/72 100 Temperature: Afebrile Blood Pressure: Normal Pulse: Regular Respiratory Rate: Normal Appearance: Positive for: Well-Appearing, Non-Toxic, Comfortable Pain Distress: None Mental Status: Positive for: Alert and Oriented X 3 - Systems Exam Head: Present: Atraumatic, Normocephalic Mouth: Present: Moist Mucous Membranes Neck: Present: Normal Range of Motion Respiratory/Chest: Present: Clear to Auscultation, Good Air Exchange. No: Respiratory Distress, Accessory Muscle Use Cardiovascular: Present: Regular Rate and Rhythm, Normal S1, S2. No: Murmurs Abdomen: No: Tenderness, Distention, Peritoneal Signs, Guarding Rectal: Present: Normal Rectal Tone, Other (+erythema to the surrounding the anus, without edema, without tenderness. Female CALENDER SUPERVISOR Maria Dolores was present during the entire exam.). No: Occult Blood, Rectal Tenderness, Gross Blood, Melena, Hemorrhoids, Fissures, Nodule/Mass/Lesions Genitourinary/Pelvic Exam: Present: Normal External Genitalia, Other (Female CALENDER SUPERVISOR Maria Dolores present during the exam. ). No: Vaginal Discharge, Vaginal Bleeding Back: Present: Normal Inspection Upper Extremity: Present: Normal Inspection. No: Cyanosis, Edema Lower Extremity: Present: Normal Inspection. No: Edema Neurological: Present: GCS=15, CN II-XII Intact, Speech Normal, Motor Func Grossly Intact, Normal Sensory Function Skin: Present: Warm, Dry, Normal Color. No: Rashes Psychiatric: Present: Alert, Oriented x 3, Normal Insight, Normal Concentration Medical Decision Making ED Course and Treatment: 11/15/17 18:51 Advised to follow up with primary care physician in 1-2 days without fail. Advised to take medication as prescribed. Return to the emergency room at any time for any new or worsening symptoms. Patient states she fully agrees with and understands discharge instructions. States that she agrees with the plan and disposition. Verbalized and repeated discharge instructions and plan. I have given the patient opportunity to ask any additional questions. - PA / CONE TREATER / Resident Statement /DO has reviewed & agrees with the documentation as recorded. Disposition/Present on Arrival - Present on Arrival Any Indicators Present on Arrival: No History of DVT/PE: No History of Uncontrolled Diabetes: No Urinary Catheter: No History of Decub. Ulcer: No History Surgical Site Infection Following: None - Disposition Have Diagnosis and Disposition been Completed?: Yes Diagnosis: Anal irritation Disposition: HOME/ ROUTINE Disposition Time: 19:00 Patient Plan: Discharge Condition: STABLE Discharge Instructions (ExitCare): Proctitis Additional Instructions: Thank you for letting us take care of you today. You were treated for anal irritation. The emergency medical care you received today was directed at your acute symptoms. If you were prescribed any medication, please fill it and take as directed. It may take several days for your symptoms to resolve. Return to the Emergency Department if your symptoms worsen, do not improve, or if you have any other problems. Please contact your doctor in 2 days for re-evaluation and follow up / or call one of the physicians/clinics you have been referred to that are listed on the Patient Visit Information form that is included in your discharge packet. Bring any paperwork you were given at discharge with you along with any medications you are taking to your follow up visit. Our treatment cannot replace ongoing medical care by a primary care provider (PCP) outside of the emergency department. Thank you for allowing the [facility] team to be part of your care today. Prescriptions: Hydrocortisone Rhiannon 0.2% Cr [[place]ort] 1 ea TP BID #15 tube Forms: [employer] (Turkmen), WORK NOTE
[2017-11-15 19:35] VITALS: BP 110/72; PULSE 73
== END 2017-11-15 19:40 | disposition home or self-care (01) ==
LOC: ED 17:48
DX: K62.89 Other specified diseases of anus and rectum (principal); F20.9 Schizophrenia, unspecified; F31.9 Bipolar disorder, unspecified

== ENCOUNTER 2017-11-25 13:43 | Emergency (ER) | payer OTHER ==
[2017-11-25 13:43] VITALS: BMI 36.6
[2017-11-25] MEDS ORDERED: Naproxen 550 mg Tab PO STA (14:11)
[2017-11-25 14:14] VITALS: RESP 17; TEMP 98.4
--- NOTE | 2017-11-25 14:16 | ED PDOC ---
Arrival/HPI - General Chief Complaint: Psychiatric Evaluation Time Seen by Provider: 11/25/17 14:01 Historian: Patient - History of Present Illness Narrative History of Present Illness (Text): 11/25/17 14:13 Patient is a 37 year old female who presents to the emergency department complaining of back pain. Patient reports habing chronic back pain since undergoing back surgery a few years ago. She is also complaining of neck pain that radiates to right upper extremity. Patient has been seen multiple times in the Emergency room for various complaints. Patient denies fevers, chills, cough, shortness of breath, chest pain, dyspnea on exertion, abdominal pain, nausea, vomiting, diarrhea, urinary changes, headache, dizziness, suicidal ideation, homicidal ideation, auditory hallucination, or any other complaint. Time/Duration: Other (chronic) Symptom Onset: Other Symptom Course: Unchanged Context: Home Past Medical History - Provider Review Nursing Documentation Reviewed: Yes - Past History Past History: Non-Contributing - Infectious Disease Hx of Infectious Diseases: None - Tetanus Immunization Tetanus Immunization: Unknown - Cardiac Hx Hypertension: No Hx Pacemaker: No - Pulmonary Hx Respiratory Disorders: No - Neurological Hx Seizures: No - HEENT Hx HEENT Disorder: No - Renal Hx Renal Disorder: Yes Other/Comment: UTI - Endocrine/Metabolic Hx Endocrine Disorders: No - Hematological/Oncological Hx Blood Disorders: No - Integumentary Hx Dermatological Disorder: No - Musculoskeletal/Rheumatological Hx Musculoskeletal Disorders: Yes Hx Back Pain: Yes - Gastrointestinal Hx Gastrointestinal Disorders: No - Genitourinary/Gynecological Hx Sexually Transmitted Diseases: No - Psychiatric Hx Anxiety: Yes Hx Bipolar Disorder: Yes Hx Depression: Yes Hx Post Traumatic Stress Disorder: No Hx Schizophrenia: Yes Hx Substance Use: No - Surgical History Other/Comment: neck surgery 2013 - Anesthesia Hx Anesthesia: Yes Hx Anesthesia Reactions: No Hx Malignant Hyperthermia: No - Suicidal Assessment Feels Threatened In Home Enviroment: No Family/Social History - Physician Review Nursing Documentation Reviewed: Yes Family/Social History: No Known Family HX Smoking Status: Never Smoked Hx Alcohol Use: No Hx Substance Use: No Hx Substance Use Treatment: No Allergies/Home Meds Allergies/Adverse Reactions: Allergies No Known Allergies Allergy (Verified 11/15/17 18:05) Review of Systems - Physician Review All systems were reviewed & negative as marked: Yes - Review of Systems Constitutional: absent: Fevers, Night Sweats Respiratory: absent: SOB, Cough Cardiovascular: absent: Chest Pain, QUINTERO Gastrointestinal: absent: Abdominal Pain, Diarrhea, Nausea, Vomiting Genitourinary Female: absent: Urine Output Changes Musculoskeletal: Back Pain, Neck Pain Neurological: absent: Headache, Dizziness Psychiatric: absent: Suicidal Ideation, Other (homicidal ideation, auditory hallucination) Physical Exam Vital Signs Temp Pulse Resp Pulse Ox 11/25/17 13:56 98.1 F 87 18 99 Temperature: Afebrile Blood Pressure: Normal Pulse: Regular Respiratory Rate: Normal Appearance: Positive for: Well-Appearing Mental Status: Positive for: Alert and Oriented X 3 - Systems Exam Head: Present: Atraumatic, Normocephalic Pupils: Present: PERRL Extroacular Muscles: Present: EOMI Conjunctiva: Present: Normal Mouth: Present: Moist Mucous Membranes Neck: Present: Normal Range of Motion Respiratory/Chest: Present: Clear to Auscultation, Good Air Exchange. No: Respiratory Distress, Accessory Muscle Use Cardiovascular: Present: Regular Rate and Rhythm, Normal S1, S2. No: Murmurs Abdomen: Present: Other (morbidly obese). No: Tenderness, Distention, Peritoneal Signs Back: Present: Paraspinal Tenderness (paracervical and parathoracic tenderness) Upper Extremity: Present: Normal Inspection. No: Cyanosis, Edema Lower Extremity: Present: Normal Inspection. No: Edema Neurological: Present: GCS=15, CN II-XII Intact, Speech Normal Skin: Present: Warm, Dry, Normal Color. No: Rashes Psychiatric: Present: Alert, Oriented x 3, Normal Insight, Normal Concentration, Other (Patient was calm and cooperative on exam) Medical Decision Making ED Course and Treatment: 11/25/17 14:19 Impression: 37 year old female complaining of back and neck pain. Differential Diagnosis included but are not limited to: chronic back pain no pysch complaint today. no new trauma. Plan: -- Naproxen -- Reassess and disposition Prior Visits: Notes and results from previous visits were reviewed. Progress Notes: 11/25/17 19:48 naproxen, outpt fu. - Medication Orders Current Medication Orders: Naproxen (Anaprox Ds) 550 mg PO STAT STA Stop: 11/25/17 14:12 - Scribe Statement The provider has reviewed the documentation as recorded by the Jose Ogden Provider Scribe Attestation: All medical record entries made by the Scribe were at my direction and personally dictated by me. I have reviewed the chart and agree that the record accurately reflects my personal performance of the history, physical exam, medical decision making, and the department course for this patient. I have also personally directed, reviewed, and agree with the discharge instructions and di sposition. Disposition/Present on Arrival - Present on Arrival Any Indicators Present on Arrival: No History of DVT/PE: No History of Uncontrolled Diabetes: No Urinary Catheter: No History of Decub. Ulcer: No History Surgical Site Infection Following: None - Disposition Have Diagnosis and Disposition been Completed?: Yes Diagnosis: Back pain, Neck pain Disposition: HOME/ ROUTINE Disposition Time: 02:00 Condition: STABLE Discharge Instructions (ExitCare): Upper Back Pain (DC) Additional Instructions: return to er with worsening symptoms or concerns. Prescriptions: RX: Naproxen 500 mg PO BID PRN #14 tab PRN Reason: Pain, Mild (1-3) Referrals: Haim Alba MD [Staff Provider] - Follow up with primary Forms: [employer] (Iraqi)
[2017-11-25 14:34] VITALS: BP 110/82; PULSE 86; O2SAT 98
== END 2017-11-25 14:33 | disposition home or self-care (01) ==
LOC: ED 13:43
DX: M54.6 Pain in thoracic spine (principal); M54.2 Cervicalgia

== ENCOUNTER 2017-11-30 20:06 | Emergency (ER) | payer OTHER ==
[2017-11-30 20:07] VITALS: BMI 36.6
[2017-11-30 20:35] VITALS: RESP 18; O2SAT 97
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
[2017-11-30 21:47] LABS: MEAN CORPUSCULAR HEMOGLOBIN 29.2 pg (25.0-35.0); MEAN CORPUSCULAR HGB CONC 34.7 g/dl (31.0-37.0); MEAN PLATELET VOLUME 9.3 fl (7.0-11.0); RBC 5.14 10^6/uL (3.5-6.1); RED CELL DISTRIBUTION WIDTH 12.7 % (11.5-14.5); WHITE BLOOD COUNT 9.5 10^3/ul (4.5-11.0)
[2017-11-30 21:58] LABS: ALB/GLOB RATIO 1.2 (1.1-1.8); ALBUMIN 4.7 g/dL (3.0-4.8); ALT/SGPT 26 U/L (7-56); AST/SGOT 31 U/L (14-36); BLOOD UREA NITROGEN 15 mg/dL (7-21); CALCIUM 9.6 mg/dL (8.4-10.5); GFR NON-AFRICAN AMERICAN > 60
[2017-12-01 01:55] LABS: BARBITURATES, UR NEGATIVE (NEGATIVE); BENZODIAZEPINES, UR NEGATIVE (NEGATIVE); OPIATES, UR NEGATIVE (NEGATIVE); PHENCYCLIDINE, UR NEGATIVE (NEGATIVE)
--- NOTE | 2017-12-01 07:23 | ED PDOC ---
Physical Exam - Physical Exam Narrative Physical Exam (Text): 12/01/17 07:00 Case endorsed to me by Dr. Ernandez, pending [facility] screening and disposition. Pt resting comfortably, in no acute distress. Vital Signs Temp Pulse Resp BP Pulse Ox 12/01/17 06:29 98.4 F 89 18 108/66 97 11/30/17 20:28 99.1 F 94 H 18 102/57 L 97 Medical Decision Making ED Course and Treatment: 12/01/17 09:49 patient seen by PES screener. patient cleared for discharge. Patient does not meet inpatient criteria. Patient does not appear to be an acute threat to herself or others. Patient has close outpt follow up. - Lab Interpretations Lab Results: 11/30/17 21:30 11/30/17 21:30 Lab Results 11/30/17 21:34: Urine Opiates Screen Negative, Urine Methadone Screen Negative, Ur Barbiturates Screen Negative, Ur Phencyclidine Scrn Negative, Ur Amphetamines Screen Negative, U Benzodiazepines Scrn Negative, U Oth Cocaine Metabols Negative, U Cannabinoids Screen Negative 11/30/17 21:30: WBC 9.5 D, RBC 5.14, Hgb 15.0, Hct 43.2, MCV 84.0, MCH 29.2, MCHC 34.7, RDW 12.7, Plt Count 378, MPV 9.3 11/30/17 21:30: Alcohol, Quantitative < 10 11/30/17 21:30: Sodium 139, Potassium 4.2, Chloride 102, Carbon Dioxide 26, Anion Gap 15, BUN 15, Creatinine 0.7, Est GFR ( Amer) > 60, Est GFR (Non- Af Amer) > 60, Random Glucose 96, Calcium 9.6, Total Bilirubin 0.5, AST 31, ALT 26, Alkaline Phosphatase 63, Total Protein 8.7 H, Albumin 4.7, Globulin 4.0, Albumin/Globulin Ratio 1.2 - RAD Interpretation Narrative RAD Interpretations (Text): 12/01/17 08:51 Chest X-ray FINDINGS: LUNGS: No active pulmonary disease. PLEURA: No significant pleural effusion identified, no pneumothorax apparent. CARDIOVASCULAR: Normal. OSSEOUS STRUCTURES: No significant abnormalities. VISUALIZED UPPER ABDOMEN: Normal. OTHER FINDINGS: None. IMPRESSION: No active disease. Radiology Orders: 11/30/17 20:47 CHEST PORTABLE [RAD] Stat - Medication Orders Current Medication Orders: Discontinued Medications Lorazepam (Ativan) 2 mg IM ONCE ONE Stop: 11/30/17 23:28 Last Admin: 11/30/17 23:37 Dose: 2 mg IM Administration Charges Document 11/30/17 23:37 LAC (Rec: 11/30/17 23:37 LAC [id number]) Charges for Administration # of IM Administrations 1 - Scribe Statement The provider has reviewed the documentation as recorded by the Jose Hernandez Provider Scribe Attestation: All medical record entries made by the Scribe were at my direction and personally dictated by me. I have reviewed the chart and agree that the record accurately reflects my personal performance of the history, physical exam, medical decision making, and the department course for this patient. I have also personally directed, reviewed, and agree with the discharge instructions and disposition. Disposition/Present on Arrival - Present on Arrival Any Indicators Present on Arrival: No History of DVT/PE: No History of Uncontrolled Diabetes: No Urinary Catheter: No History of Decub. Ulcer: No History Surgical Site Infection Following: None - Disposition Have Diagnosis and Disposition been Completed?: Yes Diagnosis: Bipolar disorder, manic phase Disposition: HOME/ ROUTINE Disposition Time: 09:50 Patient Plan: Discharge Patient Problems: Current Active Problems Problem Status Onset Bipolar disorder, manic phase Acute Condition: STABLE Discharge Instructions (ExitCare): Bipolar Disorder Forms: [employer] (Montenegrin), WORK NOTE
--- NOTE | 2017-12-01 08:23 | RAD ---
Date of service: 11/30/2017 HISTORY: medical clearance COMPARISON: 09/26/2017 FINDINGS: LUNGS: No active pulmonary disease. PLEURA: No significant pleural effusion identified, no pneumothorax apparent. CARDIOVASCULAR: Normal. OSSEOUS STRUCTURES: No significant abnormalities. VISUALIZED UPPER ABDOMEN: Normal. OTHER FINDINGS: None. IMPRESSION: No active disease.
[2017-12-01 10:40] VITALS: BP 118/79; PULSE 77; TEMP 97.9
--- NOTE | 2017-12-01 11:50 | CARD ---
APPROVED REPORT Date of service: 11/30/2017 EKG Measurement Heart [id number] <Conclusion> Normal sinus rhythm Normal ECG
== END 2017-12-01 10:39 | disposition home or self-care (01) ==
LOC: ED 20:06
DX: F31.9 Bipolar disorder, unspecified (principal)
CPT/HCPCS: 71045; 80053; 80320; 80324; 80345; 80346; 80349; 80353; 80358; 80361; 83992; 85027; 90791; 93005; 96372; 99285; J2060

== ENCOUNTER 2017-12-05 18:22 | Emergency (ER) | payer OTHER ==
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
[2017-12-05 20:10] LABS: BASO # 0.02 K/mm3 (0.0-2.0); BASO % 0.3 % (0.0-3.0); EOS # 0.1 (0.0-0.7); EOS % 0.6 % (1.5-5.0); GRAN # 4.85 (1.4-6.5); GRAN % 61.1 % (50.0-68.0); HEMOGLOBIN 14.1 g/dL (12.0-16.0); LYMPH # 2.4 (1.2-3.4); LYMPH % 30.2 % (22.0-35.0); MEAN CELL VOLUME 84.8 fl (80.0-105.0); MEAN CORPUSCULAR HEMOGLOBIN 28.9 pg (25.0-35.0); MEAN CORPUSCULAR HGB CONC 34.1 g/dl (31.0-37.0); MEAN PLATELET VOLUME 9.5 fl (7.0-11.0); MONO # 0.6 (0.1-0.6); MONO % 7.8 % (1.0-6.0); RBC 4.88 10^6/uL (3.5-6.1); RED CELL DISTRIBUTION WIDTH 12.7 % (11.5-14.5); WHITE BLOOD COUNT 7.9 10^3/ul (4.5-11.0)
[2017-12-05 20:32] LABS: ALB/GLOB RATIO 1.1 (1.1-1.8); ALBUMIN 4.1 g/dL (3.0-4.8); ALT/SGPT 27 U/L (7-56); AST/SGOT 31 U/L (14-36); BLOOD UREA NITROGEN 11 mg/dL (7-21); CALCIUM 9.3 mg/dL (8.4-10.5); GFR NON-AFRICAN AMERICAN > 60
[2017-12-05 21:37] LABS: URINE APPEARANCE CLEAR (CLEAR); URINE BILIRUBIN NEGATIVE (NEGATIVE); URINE BLOOD NEGATIVE (NEGATIVE); URINE COLOR YELLOW (YELLOW); URINE GLUCOSE (UA) NEGATIVE (NEGATIVE); URINE LEUKOCYTE ESTERASE NEGATIVE Leu/uL (NEGATIVE); URINE PROTEIN NEGATIVE mg/dL (<30 mg/dL); URINE UROBILINOGEN 0.2 E.U./dL (<1 E.U./dL)
[2017-12-05 21:40] LABS: HCG,QUALITATIVE URINE NEGATIVE (NEGATIVE)
[2017-12-05 21:55] LABS: BARBITURATES, UR NEGATIVE (NEGATIVE); BENZODIAZEPINES, UR NEGATIVE (NEGATIVE); OPIATES, UR NEGATIVE (NEGATIVE); PHENCYCLIDINE, UR NEGATIVE (NEGATIVE)
[2017-12-06] MEDS ORDERED: Naproxen 550 mg Tab PO STA (00:22)
--- NOTE | 2017-12-06 07:08 | ED PDOC ---
Physical Exam Vital Signs Temp Pulse Resp BP Pulse Ox 12/07/17 04:00 89 18 127/69 100 12/07/17 00:00 78 18 129/78 98 12/06/17 20:00 98.5 F 85 18 131/79 100 12/06/17 18:25 98 F 85 19 124/53 L 98 12/06/17 14:46 68 18 121/58 L 99 12/06/17 10:03 98 F 75 19 123/53 L 99 12/06/17 07:37 98 F 75 19 134/72 99 12/06/17 03:30 77 18 118/60 98 12/06/17 00:30 99 F 78 18 97 12/05/17 22:50 98.2 F 76 18 126/62 97 <Ralph Perez - Last Filed: 12/07/17 06:52> Vital Signs Temp Pulse Resp BP Pulse Ox 12/06/17 03:30 77 18 118/60 98 12/06/17 00:30 99 F 78 18 97 12/05/17 22:50 98.2 F 76 18 126/62 97 <Julian Denton - Last Filed: 12/10/17 17:44> Medical Decision Making - Lab Interpretations Lab Results: 12/05/17 19:43 12/05/17 19:43 Lab Results 12/05/17 21:20: Urine Opiates Screen Negative, Urine Methadone Screen Negative, Ur Barbiturates Screen Negative, Ur Phencyclidine Scrn Negative, Ur Amphetamines Screen Negative, U Benzodiazepines Scrn Negative, U Oth Cocaine Metabols Negative, U Cannabinoids Screen Negative 12/05/17 21:20: Urine Color Yellow, Urine Appearance Clear, Urine pH 6.0, Ur Specific [place] 1.020, Urine Protein Negative, Urine Glucose (UA) Negative, Urine Ketones Negative, Urine Blood Negative, Urine Nitrate Negative, Urine Bilirubin Negative, Urine Urobilinogen 0.2, Ur Leukocyte Esterase Negative, Urine HCG, Qual Negative 12/05/17 19:43: Alcohol, Quantitative < 10 12/05/17 19:43: Sodium 136, Potassium 4.0, Chloride 102, Carbon Dioxide 25, Anion Gap 13, BUN 11, Creatinine 0.7, Est GFR ( Amer) > 60, Est GFR (Non- Af Amer) > 60, Random Glucose 103, Calcium 9.3, Total Bilirubin 0.5, AST 31, ALT 27, Alkaline Phosphatase 63, Total Protein 7.8, Albumin 4.1, Globulin 3.7, Albumin/Globulin Ratio 1.1 12/05/17 19:43: WBC 7.9, RBC 4.88, Hgb 14.1, Hct 41.4, MCV 84.8, MCH 28.9, MCHC 34.1, RDW 12.7, Plt Count 338, MPV 9.5, Gran % 61.1, Lymph % (Auto) 30.2, [place] % (Auto) 7.8 H, Eos % (Auto) 0.6 L, Baso % (Auto) 0.3, Gran # 4.85, Lymph # (Auto) 2.4, [place] # (Auto) 0.6, Eos # (Auto) 0.1, Baso # (Auto) 0.02 - Medication Orders Current Medication Orders: Diphenhydramine HCl (Benadryl) 50 mg IM Q6H PRN PRN Reason: Agitation Last Admin: 12/06/17 22:59 Dose: 50 mg IM Administration Charges Document 12/06/17 22:59 AD (Rec: 12/06/17 22:59 AD [id number]) Injection Site MAR Injection Site Left Deltoid Charges for Administration # of IM Administrations 1 Divalproex Sodium (Depakote Dr(*Bid*)) 500 mg PO BID ANUSHA Last Admin: 12/06/17 20:42 Dose: Not Given Non-Admin Reason: Patient Refused Haloperidol Lactate (Haldol) 5 mg IM Q6H PRN; Protocol PRN Reason: Agitation Last Admin: 12/06/17 22:54 Dose: 5 mg IM Administration Charges Document 12/06/17 22:54 AD (Rec: 12/06/17 22:54 AD [id number]) Injection Site MAR Injection Site Left Deltoid Charges for Administration # of IM Administrations 1 Lorazepam (Ativan) 2 mg IM Q6 PRN; Protocol PRN Reason: agitaton Last Admin: 12/06/17 22:54 Dose: 2 mg IM Administration Charges Document 12/06/17 22:54 AD (Rec: 12/06/17 22:54 AD [id number]) Injection Site MAR Injection Site Right Deltoid Charges for Administration # of IM Administrations 1 Olanzapine (Zyprexa Zydis) 5 mg PO BID ANUSHA; Protocol Last Admin: 12/06/17 20:42 Dose: Not Given Non-Admin Reason: Patient Refused Zolpidem Tartrate (Ambien) 5 mg PO HS ANUSHA; Protocol Last Admin: 12/06/17 22:00 Dose: Not Given Non-Admin Reason: Patient Refused Discontinued Medications Lorazepam (Ativan) 1 mg IM ONCE ONE; Protocol Stop: 12/05/17 23:31 Last Admin: 12/05/17 23:45 Dose: 1 mg IM Administration Charges Document 12/05/17 23:45 RG (Rec: 12/06/17 01:49 RG [id number]) Injection Site MAR Injection Site Right Deltoid Charges for Administration # of IM Administrations 1 Naproxen (Anaprox Ds) 550 mg PO ONCE STA Stop: 12/06/17 00:23 Last Admin: 12/06/17 00:49 Dose: Not Given Non-Admin Reason: Patient Refused - Transfer of Care Patient signed out to Dr:: mary pending [facility] <Ralph Perez - Last Filed: 12/07/17 06:52> ED Course and Treatment: Signout received by Dr. Perez pending [facility] admission. 12/06/17 07:20 Patient noted to become belligerent with staff throwing furniture and being combative. Dr. Flynn(psychiatry) at the bedside ordering restraints. 12/06/17 20:[address] Perez who will resume the patient's care. - Lab Interpretations Lab Results: 12/05/17 19:43 12/05/17 19:43 Lab Results 12/05/17 21:20: Urine Opiates Screen Negative, Urine Methadone Screen Negative, Ur Barbiturates Screen Negative, Ur Phencyclidine Scrn Negative, Ur Amphetamines Screen Negative, U Benzodiazepines Scrn Negative, U Oth Cocaine Metabols Negative, U Cannabinoids Screen Negative 12/05/17 21:20: Urine Color Yellow, Urine Appearance Clear, Urine pH 6.0, Ur Specific [place] 1.020, Urine Protein Negative, Urine Glucose (UA) Negative, Urine Ketones Negative, Urine Blood Negative, Urine Nitrate Negative, Urine Bilirubin Negative, Urine Urobilinogen 0.2, Ur Leukocyte Esterase Negative, Urine HCG, Qual Negative 12/05/17 19:43: Alcohol, Quantitative < 10 10/13/18 19:43: Sodium 136, Potassium 4.0, Chloride 102, Carbon Dioxide 25, Anion Gap 13, BUN 11, Creatinine 0.7, Est GFR ( Amer) > 60, Est GFR (Non- Af Amer) > 60, Random Glucose 103, Calcium 9.3, Total Bilirubin 0.5, AST 31, ALT 27, Alkaline Phosphatase 63, Total Protein 7.8, Albumin 4.1, Globulin 3.7, Albumin/Globulin Ratio 1.1 12/05/17 19:43: WBC 7.9, RBC 4.88, Hgb 14.1, Hct 41.4, MCV 84.8, MCH 28.9, MCHC 34.1, RDW 12.7, Plt Count 338, MPV 9.5, Gran % 61.1, Lymph % (Auto) 30.2, [place] % (Auto) 7.8 H, Eos % (Auto) 0.6 L, Baso % (Auto) 0.3, Gran # 4.85, Lymph # (Auto) 2.4, [place] # (Auto) 0.6, Eos # (Auto) 0.1, Baso # (Auto) 0.02 - Medication Orders Current Medication Orders: Discontinued Medications Lorazepam (Ativan) 1 mg IM ONCE ONE; Protocol Stop: 12/05/17 23:31 Last Admin: 12/05/17 23:45 Dose: 1 mg IM Administration Charges Document 12/05/17 23:45 (Rec: 12/06/17 01:49 [id number]) Injection Site MAR Injection Site Right Deltoid Charges for Administration # of IM Administrations 1 Naproxen (Anaprox Ds) 550 mg PO ONCE STA Stop: 12/06/17 00:23 Last Admin: 12/06/17 00:49 Dose: Not Given Non-Admin Reason: Patient Refused <Julian Denton - Last Filed: 12/10/17 17:44> Disposition/Present on Arrival - Present on Arrival Any Indicators Present on Arrival: No - Disposition Have Diagnosis and Disposition been Completed?: Yes Disposition Time: 07:00 <Ralph Perez - Last Filed: 12/07/17 06:52> - Present on Arrival Any Indicators Present on Arrival: No History of DVT/PE: No History of Uncontrolled Diabetes: No Urinary Catheter: No History of Decub. Ulcer: No History Surgical Site Infection Following: None <Julian Denton - Last Filed: 12/10/17 17:44> - Disposition Diagnosis: Bipolar disorder Disposition: Transfer [facility] Condition: GOOD Additional Instructions: Pt is involuntary psych hold and may need restraints for transports. If patient needs to be restrained en route- can use soft arm restraints due to failure to understand need for restraint. Restraints to be discontinued upon arrival to [facility] with permission from [facility] physician. Forms: [employer] (Malian)
[2017-12-06] MEDS: DiphenhydrAMINE 50 mg/ml Inj IM PRN ×2 (07:31→22:59)
[2017-12-06 07:49] VITALS: BMI 34.7
[2017-12-06] MEDS: Divalproex 500 mg DR(BID formulation) PO SCH ×2 (10:35→20:42)
[2017-12-06] MEDS: OLANZapine 5 mg Disintegrating Tab PO SCH ×2 (10:35→20:42)
--- NOTE | 2017-12-06 15:24 | CARD ---
APPROVED REPORT Date of service: 12/05/2017 EKG Measurement Heart [id number] <Conclusion> Normal sinus rhythm Cannot rule out Anterior infarct, age undetermined Abnormal ECG
--- NOTE | 2017-12-06 18:53 | CON ---
DATE: 12/06/2017 Shortly, the patient is 37-year-old female with no definite psychiatric diagnosis. Most likely, the patient has schizophrenia spectrum or schizoaffective disorder. The patient is well known to this hospital from multiple emergency room visits as well as one psychiatric admission under Dr. Cuevas's service in August 2013. The patient has chronic noncompliance with the medications as well as followup appointments. The patient was brought in by police because the patient was accusing her family stealing her necklace. The patient presented to be disorganized, psychotic, flight of ideas, pressured speech. The patient did not want to stay in the hospital and this business writer initiates screening by [facility]. This business writer was doing morning rounds in the emergency room, evaluated the patient. The patient presented to be agitated, screaming, yelling that she needs to take her clothes, and she wants to leave. The patient was threatening staff as well as the patient was assaultive. The patient threw the tray as well as pushed staff around, and the patient presented opposed to self and others and was placed in restraint, medicated with Haldol 5 mg, Benadryl 50 and the Ativan 2 mg because the patient was not able to calm down and pose imminent danger to self and others. Vital signs are stable. Temperature 99, pulse 77, blood pressure 118/60, respirations 18, oxygen saturation is 98. Medications reviewed. The patient got only one dose of Ativan yesterday at 11:30. This business writer also started medication such as Zyprexa Zydis 5 mg twice a day, Ambien 5 mg at the nighttime as well as Depakote 500 mg twice a day. Labs reviewed. Toxicology reviewed. There are no substances in the urine. MENTAL STATUS EXAMINATION: The patient presented to be agitated, very poor personal hygiene, pressured speech, angry. Affect, mood described "I will find to get out of here." Thought process disorganized, circumstantial, tangential. Thought content, the patient obviously in distress, psychotic as well as paranoid. Insight and judgment are very impaired. Impulses are not predictable. IMPRESSION: Most likely, the patient has schizoaffective disorder, bipolar type versus schizophrenia versus bipolar disorder with psychosis. PLAN: [facility] accepted the patient. At the present moment, the patient is waiting for bed to be available. The patient is currently in restraint on the back. The patient was medicated. The patient required further hospitalization and stabilization. Whenever bed available at [facility], the patient will be transferred for involuntary commitment. Thank you very much for letting me participate in the care of your patient. Should you have any questions, give me a call back. Rina Muir MD cc: MD Vaughn
--- NOTE | 2017-12-06 19:58 | ED PDOC ---
Physical Exam Vital Signs Temp Pulse Resp BP Pulse Ox 12/06/17 18:25 98 F 85 19 124/53 L 98 12/06/17 14:46 68 18 121/58 L 99 12/06/17 10:03 98 F 75 19 123/53 L 99 12/06/17 07:37 98 F 75 19 134/72 99 12/06/17 03:30 77 18 118/60 98 12/06/17 00:30 99 F 78 18 97 12/05/17 22:50 98.2 F 76 18 126/62 97 Medical Decision Making ED Course and Treatment: 12/07/17 04:32 [place] [facility] [place] Lab Interpretations Lab Results: 12/05/17 19:43 12/05/17 19:43 Lab Results 12/05/17 21:20: Urine Opiates Screen Negative, Urine Methadone Screen Negative, Ur Barbiturates Screen Negative, Ur Phencyclidine Scrn Negative, Ur Amphetamines Screen Negative, U Benzodiazepines Scrn Negative, U Oth Cocaine Metabols Negativ e, U Cannabinoids Screen Negative 12/05/17 21:20: Urine Color Yellow, Urine Appearance Clear, Urine pH 6.0, Ur Specific [place] 1.020, Urine Protein Negative, Urine Glucose (UA) Negative, Urine Ketones Negative, Urine Blood Negative, Urine Nitrate Negative, Urine Bilirubin Negative, Urine Urobilinogen 0.2, Ur Leukocyte Esterase Negative, Urine HCG, Qual Negative 12/05/17 19:43: Alcohol, Quantitative < 10 12/05/17 19:43: Sodium 136, Potassium 4.0, Chloride 102, Carbon Dioxide 25, Anion Gap 13, BUN 11, Creatinine 0.7, Est GFR ( Amer) > 60, Est GFR (Non- Af Amer) > 60, Random Glucose 103, Calcium 9.3, Total Bilirubin 0.5, AST 31, ALT 27, Alkaline Phosphatase 63, Total Protein 7.8, Albumin 4.1, Globulin 3.7, Album in/Globulin Ratio 1.1 12/05/17 19:43: WBC 7.9, RBC 4.88, Hgb 14.1, Hct 41.4, MCV 84.8, MCH 28.9, MCHC 34.1, RDW 12.7, Plt Count 338, MPV 9.5, Gran % 61.1, Lymph % (Auto) 30.2, [place] % (Auto) 7.8 H, Eos % (Auto) 0.6 L, Baso % (Auto) 0.3, Gran # 4.85, Lymph # (Auto) 2.4, [place] # (Auto) 0.6, Eos # (Auto) 0.1, Baso # (Auto) 0.02 - Medication Orders Current Medication Orders: Diphenhydramine HCl (Benadryl) 50 mg IM Q6H PRN PRN Reason: Agitation Last Admin: 12/06/17 07:31 Dose: 50 mg IM Administration Charges Document 12/06/17 07:31 GMI (Rec: 12/06/17 07:31 I [id number]) Injection Site MAR Injection Site Left Deltoid Charges for Administration # of IM Administrations 1 Divalproex Sodium (Depakote Dr(*Bid*)) 500 mg PO BID ANUSHA Last Admin: 12/06/17 10:35 Dose: Not Given Non-Admin Reason: Patient Refused Haloperidol Lactate (Haldol) 5 mg IM Q6H PRN; Protocol PRN Reason: Agitation Last Admin: 12/06/17 07:30 Dose: 5 mg IM Administration Charges Document 12/06/17 07:30 GMI (Rec: 12/06/17 07:31 GMI [id number]) Injection Site MAR Injection Site Right Deltoid Charges for Administration # of IM Administrations 1 Lorazepam (Ativan) 2 mg IM Q6 PRN; Protocol PRN Reason: agitaton Last Admin: 12/06/17 07:32 Dose: 2 mg IM Administration Charges Document 12/06/17 07:32 GMI (Rec: 12/06/17 07:32 I [id number]) Injection Site MAR Injection Site Left Deltoid Charges for Administration # of IM Administrations 1 Olanzapine (Zyprexa Zydis) 5 mg PO BID ANUSHA; Protocol Last Admin: 12/06/17 10:35 Dose: Not Given Non-Admin Reason: Patient Refused Zolpidem Tartrate (Ambien) 5 mg PO HS ANUSHA; Protocol Discontinued Medications Lorazepam (Ativan) 1 mg IM ONCE ONE; Protocol Stop: 12/05/17 23:31 Last Admin: 12/05/17 23:45 Dose: 1 mg IM Administration Charges Document 12/05/17 23:45 RG (Rec: 12/06/17 01:49 RG [id number]) Injection Site MAR Injection Site Right Deltoid Charges for Administration # of IM Administrations 1 Naproxen (Anaprox Ds) 550 mg PO ONCE STA Stop: 12/06/17 00:23 Last Admin: 12/06/17 00:49 Dose: Not Given Non-Admin Reason: Patient Refused Disposition/Present on Arrival - Present on Arrival Any Indicators Present on Arrival: No History of DVT/PE: No History of Uncontrolled Diabetes: No Urinary Catheter: No History of Decub. Ulcer: No History Surgical Site Infection Following: None - Disposition Have Diagnosis and Disposition been Completed?: Yes Diagnosis: Bipolar disorder Disposition: Transfer [facility] Disposition Time: 07:00 Patient Problems: Current Active Problems Problem Status Onset Bipolar disorder Acute Condition: STABLE Forms: [employer] (Persian)
--- NOTE | 2017-12-07 08:23 | ED PDOC ---
Physical Exam Vital Signs Reviewed: Yes Vital Signs Temp Pulse Resp BP Pulse Ox 12/07/17 04:00 89 18 127/69 100 12/07/17 00:00 78 18 129/78 98 12/06/17 20:00 98.5 F 85 18 131/79 100 12/06/17 18:25 98 F 85 19 124/53 L 98 12/06/17 14:46 68 18 121/58 L 99 12/06/17 10:03 98 F 75 19 123/53 L 99 12/06/17 07:37 98 F 75 19 134/72 99 12/06/17 03:30 77 18 118/60 98 12/06/17 00:30 99 F 78 18 97 12/05/17 22:50 98.2 F 76 18 126/62 97 Temperature: Afebrile Blood Pressure: Normal Pulse: Regular Respiratory Rate: Normal Appearance: Positive for: Well-Appearing, Non-Toxic Pain Distress: None Mental Status: Positive for: Alert and Oriented X 3 - Systems Exam Head: Present: Atraumatic, Normocephalic Respiratory/Chest: Present: Clear to Auscultation, Good Air Exchange. No: Respiratory Distress, Accessory Muscle Use Cardiovascular: Present: Regular Rate and Rhythm, Normal S1, S2. No: Murmurs Upper Extremity: Present: Normal Inspection. No: Cyanosis, Edema Lower Extremity: Present: Normal Inspection. No: Edema Neurological: Present: GCS=15, CN II-XII Intact, Speech Normal Skin: Present: Warm, Dry, Normal Color. No: Rashes Psychiatric: Present: Alert, Oriented x 3 Medical Decision Making ED Course and Treatment: 12/07/17 07:10 Case endorsed to me by Dr. Perez for pending [facility] bed availability. Patient is a 37 year old female who was brought to the Emergency department by [facility] for psychiatric evaluation. Patient is currently resting in bed in no acute distress. Patient presents no new medical complaints. Patient has been medically cleared by previous team and has been accepted by [facility] for admission. Pending [facility] bed availability. 12/07/17 12:30 xferred to [facility] - Lab Interpretations Lab Results: 12/05/17 19:43 12/05/17 19:43 Lab Results 12/05/17 21:20: Urine Opiates Screen Negative, Urine Methadone Screen Negative, Ur Barbiturates Screen Negative, Ur Phencyclidine Scrn Negative, Ur Amphetamines Screen Negative, U Benzodiazepines Scrn Negative, U Oth Cocaine Metabols Negative, U Cannabinoids Screen Negative 12/05/17 21:20: Urine Color Yellow, Urine Appearance Clear, Urine pH 6.0, Ur Specific [place] 1.020, Urine Protein Negative, Urine Glucose (UA) Negative, Urine Ketones Negative, Urine Blood Negative, Urine Nitrate Negative, Urine Bilirubin Negative, Urine Urobilinogen 0.2, Ur Leukocyte Esterase Negative, Urine HCG, Qual Negative 12/05/17 19:43: Alcohol, Quantitative < 10 12/05/17 19:43: Sodium 136, Potassium 4.0, Chloride 102, Carbon Dioxide 25, Anion Gap 13, BUN 11, Creatinine 0.7, Est GFR ( Amer) > 60, Est GFR (Non- Af Amer) > 60, Random Glucose 103, Calcium 9.3, Total Bilirubin 0.5, AST 31, ALT 27, Alkaline Phosphatase 63, Total Protein 7.8, Albumin 4.1, Globulin 3.7, Albumin/Globulin Ratio 1.1 12/05/17 19:43: WBC 7.9, RBC 4.88, Hgb 14.1, Hct 41.4, MCV 84.8, MCH 28.9, MCHC 34.1, RDW 12.7, Plt Count 338, MPV 9.5, Gran % 61.1, Lymph % (Auto) 30.2, [place] % (Auto) 7.8 H, Eos % (Auto) 0.6 L, Baso % (Auto) 0.3, Gran # 4.85, Lymph # (Auto) 2.4, [place] # (Auto) 0.6, Eos # (Auto) 0.1, Baso # (Auto) 0.02 - Medication Orders Current Medication Orders: Diphenhydramine HCl (Benadryl) 50 mg IM Q6H PRN PRN Reason: Agitation Last Admin: 12/06/17 22:59 Dose: 50 mg IM Administration Charges Document 12/06/17 22:59 AD (Rec: 12/06/17 22:59 AD [id number]) Injection Site MAR Injection Site Left Deltoid Charges for Administration # of IM Administrations 1 Divalproex Sodium (Depakote Dr(*Bid*)) 500 mg PO BID [facility] Last Admin: 12/06/17 20:42 Dose: Not Given Non-Admin Reason: Patient Refused Haloperidol Lactate (Haldol) 5 mg IM Q6H PRN; Protocol PRN Reason: Agitation Last Admin: 12/06/17 22:54 Dose: 5 mg IM Administration Charges Document 12/06/17 22:54 AD (Rec: 12/06/17 22:54 AD [id number]) Injection Site MAR Injection Site Left Deltoid Charges for Administration # of IM Administrations 1 Lorazepam (Ativan) 2 mg IM Q6 PRN; Protocol PRN Reason: agitaton Last Admin: 12/06/17 22:54 Dose: 2 mg IM Administration Charges Document 12/06/17 22:54 AD (Rec: 12/06/17 22:54 AD [id number]) Injection Site MAR Injection Site Right Deltoid Charges for Administration # of IM Administrations 1 Olanzapine (Zyprexa Zydis) 5 mg PO BID ANUSHA; Protocol Last Admin: 12/06/17 20:42 Dose: Not Given Non-Admin Reason: Patient Refused Zolpidem Tartrate (Ambien) 5 mg PO HS ANUSHA; Protocol Last Admin: 12/06/17 22:00 Dose: Not Given Non-Admin Reason: Patient Refused Discontinued Medications Lorazepam (Ativan) 1 mg IM ONCE ONE; Protocol Stop: 12/05/17 23:31 Last Admin: 12/05/17 23:45 Dose: 1 mg IM Administration Charges Document 12/05/17 23:45 RG (Rec: 12/06/17 01:49 RG [id number]) Injection Site MAR Injection Site Right Deltoid Charges for Administration # of IM Administrations 1 Naproxen (Anaprox Ds) 550 mg PO ONCE STA Stop: 12/06/17 00:23 Last Admin: 12/06/17 00:49 Dose: Not Given Non-Admin Reason: Patient Refused - Scribe Statement The provider has reviewed the documentation as recorded by the Skyleriblucie Daniels. All medical record entries made by the Scribe were at my direction and personally dictated by me. I have reviewed the chart and agree that the record accurately reflects my personal performance of the history, physical exam, medical decision making, and the department course for this patient. I have also personally directed, reviewed, and agree with the discharge instructions and disposition. Disposition/Present on Arrival - Present on Arrival Any Indicators Present on Arrival: No History of DVT/PE: No History of Uncontrolled Diabetes: No Urinary Catheter: No History of Decub. Ulcer: No History Surgical Site Infection Following: None - Disposition Have Diagnosis and Disposition been Completed?: Yes Diagnosis: Bipolar disorder Disposition: Transfer [facility] Disposition Time: 12:30 Patient Problems: Current Active Problems Problem Status Onset Bipolar disorder Acute Condition: STABLE Forms: [employer] (Bhutanese)
--- NOTE | 2017-12-07 09:09 | PN ---
DATE: 12/07/2017 FOLLOWUP NOTE SUBJECTIVE: In short, the patient is a 37-year-old female with reported history of schizoaffective disorder versus schizophrenia. The patient was brought in because the patient was calling constantly police complaining that her family is stealing from her. Please see initial note for more detailed information. The patient was evaluated yesterday. The patient presented to be aggressive and agitated, required four-point restraint and medication, Haldol, Benadryl and Ativan. The patient was screened by [facility]. At present moment, the patient is waiting for bed to be available there. Meanwhile, overnight, the patient needed to be medicated because of aggressive behavior. The patient is not taking any medication. Refused to take Depakote, refused to take Zyprexa and refused to take Ambien. This short story writer attempted to speak to the patient today at the morning time. The patient is deeply sleeping, was able to open her eyes, but closed them back. Was not able to participate in interview. Vital signs seems to be stable. Temperature 98.5, blood pressure 127/69, pulse is 89, respirations 18, oxygen saturation is 100. Medications reviewed. The patient was initiated with Depakote, Zyprexa Zydis and Ambien, but the patient kept refusing the medication. Labs were done on 12/05/2017. There are no new labs. MENTAL STATUS EXAMINATION: The patient obviously was in distress, was paranoid, aggressive. At the morning time, while this short story writer grounding, the patient was deeply sleeping, status post medication yesterday at the evening time. IMPRESSION: Most likely, the patient is in acute distress. The patient has history of schizoaffective disorder, bipolar type versus schizophrenia. PLAN: At present moment, the patient is on one-to-one. The patient requires further evaluation and stabilization. The patient was accepted to [facility] involuntary commitment screening. Meanwhile, this short story writer was initiating medications, Depakote, Zyprexa and p.r.n. medications. The patient is risk of elopement, required to be medicated before transfer. Discussed with the nursing staff in the emergency room. Thank you very much for letting me participate in the care of your patient. Rina Muir MD [facility] # [phone]
[2017-12-07] MEDS: Divalproex 500 mg DR(BID formulation) PO SCH (10:45)
[2017-12-07] MEDS: OLANZapine 5 mg Disintegrating Tab PO SCH (10:45)
[2017-12-07 16:36] VITALS: BP 117/80; O2SAT 98
[2017-12-07 18:14] VITALS: PULSE 87; RESP 17; TEMP 98.2
== END 2017-12-07 18:13 | disposition short-term general hospital (02) ==
LOC: ED 18:22
DX: F31.9 Bipolar disorder, unspecified (principal); F41.9 Anxiety disorder, unspecified
CPT/HCPCS: 80053; 80320; 80324; 80345; 80346; 80349; 80353; 80358; 80361; 81003; 83992; 84703; 85025; 90791; 93005; 96372; 99285; J1200; J1630; J2060

== ENCOUNTER 2018-02-06 18:03 | Emergency (ER) | payer OTHER ==
[2018-02-06 18:03] VITALS: BMI 34.7
[2018-02-06 18:16] VITALS: BP 128/90; PULSE 78; RESP 18; TEMP 98.3; O2SAT 99
--- NOTE | 2018-02-06 18:27 | ED PDOC ---
Arrival/HPI - General Chief Complaint: Abnormal Skin Integrity Time Seen by Provider: 02/06/18 18:11 Historian: Patient - History of Present Illness Narrative History of Present Illness (Text): 02/06/18 18:32 37-year-old female presents today with a rash to the left back and buttocks. She states the rash is pruritic. Patient is concerned for bedbugs. Patient states that in her house everything is very cluttered and she is feeling itchy and noticed a black bug crawling that she killed.patient denies chest pain or shortness of breath no fevers or chills. Denies headaches dizziness or weakness. Past Medical History - Provider Review Nursing Documentation Reviewed: Yes - Travel History Have you recently traveled outside [place] w/in the past 3 mons?: No - Past History Past History: Non-Contributing - Infectious Disease Hx of Infectious Diseases: None - Tetanus Immunization Tetanus Immunization: Unknown - Cardiac Hx Hypertension: No Hx Pacemaker: No - Pulmonary Hx Respiratory Disorders: No - Neurological Hx Seizures: No - HEENT Hx HEENT Disorder: No - Renal Hx Renal Disorder: Yes Other/Comment: UTI - Endocrine/Metabolic Hx Endocrine Disorders: No - Hematological/Oncological Hx Blood Disorders: No - Integumentary Hx Dermatological Disorder: No - Musculoskeletal/Rheumatological Hx Musculoskeletal Disorders: Yes Hx Back Pain: Yes - Gastrointestinal Hx Gastrointestinal Disorders: No - Genitourinary/Gynecological Hx Sexually Transmitted Diseases: No - Psychiatric Hx Anxiety: Yes Hx Bipolar Disorder: Yes Hx Depression: Yes Hx Post Traumatic Stress Disorder: No Hx Schizophrenia: Yes Hx Substance Use: No - Surgical History Other/Comment: neck surgery 2013 - Anesthesia Hx Anesthesia: Yes Hx Anesthesia Reactions: No Hx Malignant Hyperthermia: No - Suicidal Assessment Feels Threatened In Home Enviroment: No Family/Social History - Physician Review Nursing Documentation Reviewed: Yes Family/Social History: Unknown Family HX Smoking Status: Never Smoked Hx Alcohol Use: No Hx Substance Use: No Hx Substance Use Treatment: No Allergies/Home Meds Allergies/Adverse Reactions: Allergies No Known Allergies Allergy (Verified 11/15/17 18:05) Review of Systems - Review of Systems Constitutional: absent: Fatigue, Fevers Respiratory: absent: SOB, Cough Cardiovascular: absent: Chest Pain, Palpitations Gastrointestinal: absent: Abdominal Pain, Nausea, Vomiting Skin: Rash, Pruritis Psychiatric: absent: Suicidal Ideation Physical Exam Vital Signs Reviewed: Yes Vital Signs Temp Pulse Resp BP Pulse Ox 12/15/18 18:13 98.3 F 78 18 128/90 99 Temperature: Afebrile Blood Pressure: Normal Pulse: Regular Respiratory Rate: Normal Appearance: Positive for: Well-Appearing, Non-Toxic, Comfortable Pain Distress: None Mental Status: Positive for: Alert and Oriented X 3 - Systems Exam Head: Present: Atraumatic Mouth: Present: Moist Mucous Membranes Neck: Present: Normal Range of Motion Respiratory/Chest: Present: Clear to Auscultation, Good Air Exchange. No: Respiratory Distress, Accessory Muscle Use Cardiovascular: Present: Regular Rate and Rhythm, Normal S1, S2. No: Murmurs Neurological: Present: GCS=15 Skin: Present: Warm, Dry, Rashes (there are 7 small around erythematous papules noted to the left lower back/buttock in a linear z shaped pattern; non tender; no surrounding erythema; ), Normal Color Psychiatric: Present: Alert, Oriented x 3 Medical Decision Making ED Course and Treatment: 02/06/18 18:35 37-year-old female presents today with pruritic rash to the left lower back. Patient nontoxic well-appearing no distress stable vital signs concerned for possible bedbugs. There are multiple erythematous papules noted to the left flank. These could represent bug bites. We will discharge the patient home on Benadryl cream and advised the patient to have an furniture sprayer evaluate the house so she is concerned for bedbugs. Patient verbalizes understanding of discharge instructions and need for immediate followup. all aspects of this case were discussed the attending of record. Impression: Bug bites, rash apply benadryl cream to affected area twice daily as needed for itch Follow up with the on site wastewater systems technician consult an furniture sprayer Return if symptoms worsen persist or if new concerning symptoms develop Disposition/Present on Arrival - Present on Arrival Any Indicators Present on Arrival: No History of DVT/PE: No History of Uncontrolled Diabetes: No Urinary Catheter: No History of Decub. Ulcer: No History Surgical Site Infection Following: None - Disposition Have Diagnosis and Disposition been Completed?: Yes Diagnosis: Bug bites, Rash Disposition: HOME/ ROUTINE Disposition Time: 18:22 Patient Plan: Discharge Patient Problems: Current Active Problems Problem Status Onset Bug bites Acute Rash Acute Condition: GOOD Discharge Instructions (ExitCare): Skin Rash (DC), Insect Bites and Stings (DC) Additional Instructions: apply benadryl cream to affected area twice daily as needed for itch Follow up with the on site wastewater systems technician consult an furniture sprayer Return if symptoms worsen persist or if new concerning symptoms develop Prescriptions: Diphenhydramine HCl/Zinc Acet [Benadryl Itch Stopping Crm] 1 appl TP BID PRN #1 tube PRN Reason: itch, rash Referrals: Nash Gardner MD [Staff Provider] - Follow up with primary Nohemy Peace MD [Medical Doctor] - Follow up with primary [facility] [Outside] - Follow up with primary Forms: [employer] ([place]), WORK NOTE
== END 2018-02-06 18:36 | disposition home or self-care (01) ==
LOC: ED 18:03
DX: R21 Rash and other nonspecific skin eruption (principal); S30.860A Insect bite (nonvenomous) of lower back and pelvis, initial encounter; W57.XXXA Bitten or stung by nonvenomous insect and other nonvenomous arthropods, initial encounter; Y92.009 Unspecified place in unspecified non-institutional (private) residence as the place of occurrence of the external cause

== ENCOUNTER 2018-02-07 12:44 | Emergency (ER) | payer OTHER ==
[2018-02-07 12:44] VITALS: BMI 34.7
[2018-02-07 13:52] LABS: BASO # 0.03 K/mm3 (0.0-2.0); BASO % 0.3 % (0.0-3.0); EOS % 0.5 % (1.5-5.0); GRAN # 6.22 (1.4-6.5); GRAN % 70.3 % (50.0-68.0); HEMOGLOBIN 14.4 g/dL (12.0-16.0); LYMPH # 1.8 (1.2-3.4); LYMPH % 20.8 % (22.0-35.0); MEAN CORPUSCULAR HEMOGLOBIN 28.5 pg (25.0-35.0); MEAN PLATELET VOLUME 9.3 fl (7.0-11.0); MONO # 0.7 (0.1-0.6); MONO % 8.1 % (1.0-6.0); RBC 5.05 10^6/uL (3.5-6.1); WHITE BLOOD COUNT 8.9 10^3/uL (4.5-11.0)
[2018-02-07 13:58] LABS: URINE BILIRUBIN NEGATIVE (NEGATIVE); URINE BLOOD LARGE (NEGATIVE); URINE GLUCOSE (UA) NEGATIVE (NEGATIVE); URINE LEUKOCYTE ESTERASE NEGATIVE Leu/uL (NEGATIVE); URINE PROTEIN 30 mg/dL (<30 mg/dL); URINE UROBILINOGEN 0.2 E.U./dL (<1 E.U./dL)
[2018-02-07 14:03] LABS: URINE APPEARANCE SL CLOUDY (CLEAR); URINE COLOR YELLOW (YELLOW)
[2018-02-07 14:06] LABS: URINE BACTERIA MOD (NEG); URINE RBC 0 - 2 /hpf (0-2)
[2018-02-07 14:11] LABS: ACETAMINOPHEN < 10.0 ug/ml (10.0-20.0); SALICYLATE < 1 mg/dL (2.0-20.0)
[2018-02-07 14:16] LABS: ALB/GLOB RATIO 1.1 (1.1-1.8); ALBUMIN 4.4 g/dL (3.0-4.8); ALT/SGPT 33 U/L (7-56); AST/SGOT 28 U/L (14-36); BLOOD UREA NITROGEN 14 mg/dL (7-21); CALCIUM 9.4 mg/dL (8.4-10.5); GFR NON-AFRICAN AMERICAN > 60
[2018-02-07 14:31] VITALS: RESP 18
--- NOTE | 2018-02-07 15:04 | RAD ---
HISTORY: pes eval COMPARISON: Chest x-ray performed 11/30/17 TECHNIQUE: Chest, one view. FINDINGS: Examination limited by habitus and hypoinflation. LUNGS: No focal consolidation. PLEURA: No significant pleural effusion identified. No definite pneumothorax . CARDIOVASCULAR: Heart size appears within normal limits. No significant atherosclerotic calcification present. OSSEOUS STRUCTURES: Partially imaged cervical fusion hardware. VISUALIZED UPPER ABDOMEN: Unremarkable. OTHER FINDINGS: None. IMPRESSION: No focal consolidation.
[2018-02-07 15:25] LABS: BARBITURATES, UR NEGATIVE (NEGATIVE); BENZODIAZEPINES, UR NEGATIVE (NEGATIVE); OPIATES, UR NEGATIVE (NEGATIVE); PHENCYCLIDINE, UR NEGATIVE (NEGATIVE)
--- NOTE | 2018-02-07 18:03 | ED PDOC ---
Arrival/HPI - General Chief Complaint: Psychiatric Evaluation Time Seen by Provider: 02/07/18 12:59 Historian: Patient - History of Present Illness Narrative History of Present Illness (Text): 02/07/18 17:50 37-year-old female presents today brought in by ambulance for psych evaluation. patient denies headaches dizziness or weakness. No chest pain or shortness of breath. Patient states that her family is crazy and they don't understand that there are bugs in the house. Patient denies suicidal or homicidal ideations. Patient states she doesn't want to stay in the house anymore because no one believes her that there are bugs and no one wants to do anything about the bed bugs in the house. Time/Duration: Prior to Arrival Past Medical History - Provider Review Nursing Documentation Reviewed: Yes - Travel History Have you recently traveled outside [place] w/in the past 3 mons?: No - Past History Past History: Non-Contributing - Infectious Disease Hx of Infectious Diseases: None - Tetanus Immunization Tetanus Immunization: Unknown - Cardiac Hx Hypertension: No - Pulmonary Hx Respiratory Disorders: No - Neurological Hx Seizures: No - HEENT Hx HEENT Disorder: No - Renal Hx Renal Disorder: Yes Other/Comment: UTI - Endocrine/Metabolic Hx Endocrine Disorders: No - Hematological/Oncological Hx Blood Disorders: No - Integumentary Hx Dermatological Disorder: No - Musculoskeletal/Rheumatological Hx Musculoskeletal Disorders: Yes Hx Back Pain: Yes - Gastrointestinal Hx Gastrointestinal Disorders: No - Genitourinary/Gynecological Hx Sexually Transmitted Diseases: No - Psychiatric Hx Anxiety: Yes Hx Bipolar Disorder: Yes Hx Depression: Yes Hx Post Traumatic Stress Disorder: No Hx Schizophrenia: Yes Hx Substance Use: No - Surgical History Other/Comment: neck surgery 2013 - Anesthesia Hx Anesthesia: Yes Hx Anesthesia Reactions: No Hx Malignant Hyperthermia: No - Suicidal Assessment Feels Threatened In Home Enviroment: No Family/Social History - Physician Review Nursing Documentation Reviewed: Yes Family/Social History: Unknown Family HX Smoking Status: Never Smoked Hx Alcohol Use: No Hx Substance Use: No Hx Substance Use Treatment: No Allergies/Home Meds Allergies/Adverse Reactions: Allergies No Known Allergies Allergy (Verified 11/15/17 18:05) Review of Systems - Review of Systems Constitutional: absent: Fatigue, Fevers Respiratory: absent: SOB, Cough Cardiovascular: absent: Chest Pain, Palpitations Gastrointestinal: absent: Abdominal Pain, Nausea, Vomiting Musculoskeletal: absent: Arthralgias, Back Pain, Neck Pain Skin: Rash Neurological: absent: Headache, Dizziness Psychiatric: absent: Anxiety, Depression, Suicidal Ideation Physical Exam Vital Signs Reviewed: Yes Vital Signs Temp Pulse Resp BP Pulse Ox 02/07/18 14:30 98.1 F 84 18 112/75 97 Temperature: Afebrile Blood Pressure: Normal Pulse: Regular Respiratory Rate: Normal Appearance: Positive for: Well-Appearing, Non-Toxic, Comfortable Pain Distress: None Mental Status: Positive for: Alert and Oriented X 3 - Systems Exam Head: Present: Atraumatic Mouth: Present: Moist Mucous Membranes Respiratory/Chest: Present: Clear to Auscultation Cardiovascular: Present: Regular Rate and Rhythm Abdomen: No: Tenderness Upper Extremity: Present: Normal ROM Lower Extremity: Present: Normal ROM Neurological: Present: GCS=15, Speech Normal Skin: Present: Warm, Dry, Normal Color Psychiatric: Present: Alert, Oriented x 3 Medical Decision Making ED Course and Treatment: 02/07/18 18:04 Patient is nontoxic well-appearing in no distress vital signs are stable. CBC WNL CMP WNL Tylenol WNL Salicylate WNL Alcohol level WNL Urine drug screen wnl UA; + blood, no leukocytes cxr: wnl ekg normal sinus rhythm at 77 bpm normal axis no ST elevations pt is medically cleared for PES evaluation Patient was seen and evaluated by PES screener: edin; case discussed with dr. mcfarland. patient is psychiatrically cleared for discharge. Impression; increase fluids Follow the primary care physician within the next 2 days Follow-up with his psychiatrist within the next 2 days Return immediately if symptoms worsen persist or if new concerning symptoms deve lop - Lab Interpretations Lab Results: 02/07/18 13:48 02/07/18 13:48 Lab Results 02/07/18 13:48: Alcohol, Quantitative < 10 02/07/18 13:48: Salicylates < 1 L, Acetaminophen < 10.0 L 02/07/18 13:48: Sodium 139, Potassium 3.9, Chloride 108 H, Carbon Dioxide 21, Anion Gap 14, BUN 14, Creatinine 0.8, Est GFR ( Amer) > 60, Est GFR (Non- Af Amer) > 60, Random Glucose 111 H, Calcium 9.4, Total Bilirubin 0.4, AST 28, ALT 33, Alkaline Phosphatase 66, Total Protein 8.3, Albumin 4.4, Globulin 3.9, Albumin/Globulin Ratio 1.1 02/07/18 13:48: WBC 8.9, RBC 5.05, Hgb 14.4, Hct 42.4, MCV 84.0, MCH 28.5, MCHC 34.0, RDW 13.0, Plt Count 336, MPV 9.3, Gran % 70.3 H, Lymph % (Auto) 20.8 L, Pettis % (Auto) 8.1 H, Eos % (Auto) 0.5 L, Baso % (Auto) 0.3, Gran # 6.22, Lymph # (Auto) 1.8, Pettis # (Auto) 0.7 H, Eos # (Auto) 0.0, Baso # (Auto) 0.03 02/07/18 13:45: Urine Opiates Screen Negative, Urine Methadone Screen Negative, Ur Barbiturates Screen Negative, Ur Phencyclidine Scrn Negative, Ur Amphetamines Screen Negative, U Benzodiazepines Scrn Negative, U Oth Cocaine Metabols Negative, U Cannabinoids Screen Negative 02/07/18 13:45: Urine Color Yellow, Urine Appearance Sl cloudy, Urine pH 6.0, Ur Specific [place] >= 1.030, Urine Protein 30 H, Urine Glucose (UA) Negative, Urine Ketones Negative, Urine Blood Large H, Urine Nitrate Negative, Urine Bilirubin Negative, Urine Urobilinogen 0.2, Ur Leukocyte Esterase Negative, Urine RBC 0 - 2, Urine WBC 2 - 5, Ur Epithelial Cells 6 - 8, Urine Bacteria Mod - RAD Interpretation Radiology Orders: 02/07/18 13:07 CHEST PORTABLE [RAD] Stat Disposition/Present on Arrival - Present on Arrival Any Indicators Present on Arrival: No History of DVT/PE: No History of Uncontrolled Diabetes: No Urinary Catheter: No History of Decub. Ulcer: No History Surgical Site Infection Following: None - Disposition Have Diagnosis and Disposition been Completed?: Yes Diagnosis: Psychiatric complaint Disposition: HOME/ ROUTINE Disposition Time: 18:06 Patient Plan: Discharge Patient Problems: Current Active Problems Problem Status Onset Psychiatric complaint Acute Condition: GOOD Additional Instructions: increase fluids Follow the primary care physician within the next 2 days Follow-up with his psychiatrist within the next 2 days Return immediately if symptoms worsen persist or if new concerning symptoms develop Referrals: Joshua Chiang MD [Primary Care Provider] - Follow up with primary [facility] [Outside] - Follow up with primary [facility] [[facility]] - Follow up with primary Forms: [employer] (Danish)
--- NOTE | 2018-02-07 18:25 | CARD ---
APPROVED REPORT Date of service: 02/07/2018 EKG Measurement Heart [id number] <Conclusion> Normal sinus rhythm Normal ECG
[2018-02-07 18:31] VITALS: BP 125/79; PULSE 80; TEMP 98.3; O2SAT 98
== END 2018-02-07 18:30 | disposition home or self-care (01) ==
LOC: ED 12:44
DX: Z00.8 Encounter for other general examination (principal)

== ENCOUNTER 2018-05-19 21:09 | Emergency (ER) | payer OTHER, MEDICAID | END 2018-05-21 01:20 | disposition short-term general hospital (02) | LOC: ED 05-21 01:20 ==